=== PATIENT | male | born 1990 | race Caucasian/White ===

== ENCOUNTER 2019-11-15 12:28 | Inpatient (IN) | payer OTHER, SELFPAY ==
[2019-11-15] VITALS (12 sets, daily range): BP systolic 122–139; BP diastolic 67–94; PULSE 59–94; RESP 12–18; TEMP 36–36.8; O2SAT 95–100; BMI 25.8; BMI 25.0
--- NOTE | ~2019-11-15 | CT_ITS ---
EXAMINATION: CT abdomen pelvis w con DATE: 11/15/2019 15:11 INDICATION: Perforated cholecystitis TECHNIQUE: Computed tomography (CT) of the abdomen and pelvis was performed with 100 mL Omnipaque-350 intravenous contrast. Automated exposure control and iterative reconstruction technique were employe d. The dose-length product was 284.88 mGy-cm. COMPARISON: Ultrasound dated 11/15/2019 FINDINGS: Lung bases are clear. Visualized inferior heart is normal. No pericardial or pleural effusion. Spleen , pancreas, bilateral adrenal glands and kidneys are normal. The bowels including the appendix are no rmal. Partially decompressed bladder is normal. No free intraperitoneal gas or fluid. No pathological ly enlarged abdominal or pelvic lymphadenopathy. There are few scattered small sclerotic bone islands , the largest at the left femoral neck. There is diffuse wall thickening of the gallbladder with mild pericholecystic inflammatory stranding consistent with acute cholecystitis. Again seen is a small defect along the wall of the gallbladder w here it abuts the liver communicates with a 5.4 x 3.5 x 4.8 cm thick-walled cystic structure consiste nt with hepatic abscesses. No nodular soft tissue components to suggest malignancy. The remainder of the liver is normal. There is mild likely reactive periportal lymphadenopathy. The gallstone seen in the region of the neck of the gallbladder is not definitively identified on the CT images and is like ly noncalcified. No dilation of the common bile duct. IMPRESSION: 1. Likely perforated acute cholecystitis which appears to indicate with a 5.4 cm intrahepatic abscess . Reviewed, dictated and finalized at location A. ERCIAL PRODUCER IMPRESSION: 1. Likely perforated acute cholecystitis which appears to indicate with a 5.4 c m intrahepatic abscess.
--- NOTE | ~2019-11-15 | US_ITS ---
EXAMINATION: US right upper quadrant DATE: 11/15/2019 13:56 INDICATION: Right upper quadrant abdominal pain which worsens after eating TECHNIQUE: Multiple grayscale and Doppler ultrasound images of the abdomen were obtained. COMPARISON: None FINDINGS: The pancreatic head and body are normal in appearance. The pancreatic tail is not visualized. Visual ized proximal aorta and inferior vena cava are normal. Liver has normal echogenicity and contour, wit h a smooth surface. No intrahepatic biliary duct dilation suspected. Portal venous flow was seen in t he hepatopetal, normal direction and has normal Doppler waveform. Normal directional hepatofugal flow in the hepatic veins. There is diffuse wall thickening of the gallbladder measuring up to 3-4 mm. Th ere is an approximately 5 mm wide defect in the wall of the gallbladder which appears to indicate wit h a 3.8 x 4.6 x 3.6 cm anechoic fluid collection within the adjacent liver which is suspicious for pe rforation of the gallbladder and hepatic abscess. There is layering sludge within the gallbladder. Th ere is a 1.6 x 1.8 x 0.7 cm shadowing gallstone in the region of the neck of the gallbladder.. Sonogr aphic [place] sign was reported as positive by the fire control technician b.The common bile duct measures 5 mm in d iameter. Visualized portion of the right kidney demonstrates normal contour and echogenicity with no hydronephrosis. IMPRESSION: 1. Perforated acute cholecystitis with likely obstructing stone at the neck of the gallbladder and wi th communicating 4.6 cm hepatic abscess along the gallbladder fossa. Consider contrast-enhanced CT to more definitive assessment for any other hepatic disease. Reviewed, dictated and finalized at location A. OMS EXAMINER IMPRESSION: 1. Perforated acute cholecystitis with likely obstructing stone at the neck of the gallbladder and with communicating 4.6 cm hepatic abscess along the gallbla dder fossa. Consider contrast-enhanced CT to more definitive assessment for any other hepatic disease.
--- NOTE | 2019-11-15 12:41 | ED.ABDPAIN ---
HPI - Abdominal Pain General Chief Complaint: Abdominal Pain Stated Complaint: Abd pain Time Seen by Provider: 11/15/19 12:37 Source: patient and RN notes reviewed Mode of arrival: ambulatory Limitations: no limitations History of Present Illness HPI narrative: A 29 y/o male presents to the ED with constant, sharp, epigastric pain for the past week. He states that eating aggravates the pain and that when he does Fentanyl it alleviates the pain. He reports that the pain occasionally radiates into his LLQ. He denies any constipation, fevers, chills, back pain, N/V/D, or CP. MD elicited complaint: abdominal pain Pertinent past history: none Onset (ago): week(s) (1) Pain Consistency: constant Location: epigastric Quality: sharp Radiation: LLQ Exacerbating factors: eating Relieving factors: other (Fentanyl) Associated symptoms: denies other symptoms Related Data Home Medications Medication Instructions Recorded Confirmed buprenorphine-naloxone [Suboxone] film 11/15/19 Allergies Allergy/AdvReac Type Severity Reaction Status Date / Time No Known Allergies Allergy Verified 11/15/19 13:59 Review of Systems Review of Systems: All systems reviewed & are unremarkable except as noted in HPI and below Constitutional: Constitutional: Denies chills and Denies fever(s) Cardiovascular: Cardiovascular: Denies chest pain Gastrointestinal: Gastrointestinal: Reports abdominal pain (Epigastric that occasionally radiates into his LLQ), Denies constipation, Denies diarrhea, Denies nausea and Denies vomiting Musculoskeletal: Musculoskeletal: Denies back pain PMFSH Past Medical History Medical History Substance abuse 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 Currently on Suboxone treatment. Surgical History Surgical History No history of previous surgery Family History Family History Father Gallbladder disease Sibling Gallbladder disease Social History Social History Smoking packs per day: 0.5 Smoking cigarettes per day: 10.0 Years smoked: 20 Smoking pack-years: 10.00 Smoking status: Current every day smoker Tobacco type: cigarettes Alcohol intake: never Substance use: current Substance use type: opiates Other substance usage details: Currently relapsed to using fentanyl due to pain. Was on Suboxone treatment Living arrangements: with family Additional living arrangements comments: Lives with his father. Occupation/Education: occupation Additional occupation/education comments: [employer]. Gender identity (if verbalized by the patient): Male Exam Const: General: healthy appearing and no acute distress Nutritional Appearance: well nourished HENMT: Mouth: Yes lip normal, Yes moist mucous membranes and Yes other (poor dentition) Eyes: Conjunctivae: conjunctivae normal Pupils: Equal, round and reactive pupils present Resp: Effort & Inspection: normal respiratory effort Auscultation: clear to auscultation bilaterally Cardio: Rate: regular rate Rhythm: regular rhythm Heart sounds: no murmurs GI: GI Palp: Yes Soft to palpation, Yes Tenderness to palpation present (GI) (epigastric), No Guarding due to palpation present (GI) and No Rebound tenderness present Auscultation: normal bowel sounds Back/Spine/Pelvis: Other: Full ROM. Skin: General skin exam: normal color, dry skin and other (warm) Neuro: General: patient oriented x3 (alert) Speech: normal speech Extrem: General: full ROM and other (scattered scabs and scars on forearms LAKSHMI) Psych: Appearance: disheveled Course Consultations Consultation #1: Discussed case with Dr. Rojas (General Surgery). States that he will come down and take a look at the pts. Date: 11/15/19 Time: 15:23 Cons
[2019-11-15 12:52] LABS: Basophils Absolute Auto 0.1 K/mm3 (0.0-0.1); Basophils Percent Auto 0.4 % (0.2-1.2); Eosinophils Absolute Auto 0.2 K/mm3 (0-0.3); Eosinophils Percent Auto 1.4 % (0-4.4); Hematocrit 40.7 % (42.0-52.0); Hemoglobin 13.3 g/dL (14.0-18.0); Immature Granulocyte Absolute 0.05 K/mm3 (0.00-0.031); Immature Granulocyte Percent A 0.4 % (0-0.5); Lymphocytes Absolute Auto 1.85 K/mm3 (0.9-3.2); Lymphocytes Percent Auto 13.3 % (18.3-44.2); Mean Corpuscular HGB Conc 32.7 g/dl (32-36); Mean Corpuscular Hemoglobin 28.9 pg (26-34); Mean Corpuscular Volume 88.3 fl (80-100); Mean Platelet Volume 9.4 fl (7.4-10.4); Monocytes Absolute Auto 1.1 K/mm3 (0.1-0.6); Monocytes Percent Auto 7.9 % (2.6-8.5); Neutrophils Absolute Auto 10.6 K/mm3 (1.3-6.7); Neutrophils Percent Auto 76.6 % (45.5-73.1); Platelet Count Result 426 k/mm3 (150-375); Red Blood Count 4.61 M/mm3 (4.6-6.20); Red Cell Distribution Width 13.8 % (11.5-14.5); White Blood Count 13.9 K/mm3 (4.5-10.0)
[2019-11-15 13:00] LABS: Add Urine Microscopic? YES; Appearance Urine Clear (Clear); Bacteria Urine Trace /hpf; Bilirubin Urine Negative (Negative); Blood Urine Negative (Negative); Color Urine Yellow (Yellow); Glucose Urine UA Negative (Negative); Ketones Urine Negative (Negative); Leukocyte Esterase Ur Negative LEU/UL (Negative); Mucus Urine Rare /lpf; Nitrate Urine Negative (Negative); Protein Urine Negative (Negative); RBC Urine 0-2 /hpf (0-2); Specific Grav Ur 1.025 (1.001-1.035); WBC Urine 0-3 /hpf
[2019-11-15 13:02] LABS: Alanine Aminotransferase 29 U/L (4-50); Albumin Level 4.4 g/dL (3.5-5.1); Alkaline Phosphatase 94 U/L (38-126); Aspartate Amino Transferase 37 U/L (17-59); Bilirubin,Total 0.4 mg/dL (0.2-1.3); Blood Urea Nitrogen 18 mg/dL (9-20); Calcium 10.1 mg/dL (8.4-10.2); Carbon Dioxide 29 mmol/L (22-30); Chloride 101 mmol/L (98-107); Estimated CRCL calculation 114 ml/min; Estimated Glomerular Filt Rate > 60; Glucose 69 mg/dL (75-110); Lipase 22 U/L (23-300); Potassium 4.8 mmol/L (3.4-5.0); Sodium 138 mmol/L (137-145)
--- NOTE | 2019-11-15 13:54 | PC.NURSE ---
Patient back from ultrasound at this time.
[2019-11-15] MEDS: MORPHINE SULFATE 4 MG/ML INJ IV PUSH (15:59)
--- NOTE | 2019-11-15 16:16 | PM.IMHP ---
H&P: HPI History of Present Illness Chief complaint: Perforated cholecystitis Narrative: Omar Ocasio is a 29 year old male with a history of substance abuse currently on Suboxone treatment, who presented to the emergency department with complaints of right upper quadrant abdominal pain. He reports his pain initially started about 1 week ago. He reports that the pain felt like a stabbing pain in his right upper quadrant that continuously worsened over the next few days. He reports starting to inject fentanyl about 3 or 4 days ago to help suppress the pain. He states that he was previously addicted to fentanyl prior to starting the Suboxone treatment. He reports that once he started taking the fentanyl again, he stopped the Suboxone. The pain continued to worsen and was unrelenting, therefore he presented to the emergency department today for further evaluation. A right upper quadrant ultrasound was performed and showed perforated acute cholecystitis with a likely obstructing stone at the neck of the gallbladder and with a communicating 4.6 cm hepatic abscess along the gallbladder fossa. Then, a CT scan of the abdomen pelvis was performed and showed likely perforated acute cholecystitis which appears to communicate with a 5.4 cm intrahepatic abscess. There is mild likely reactive periportal lymphadenopathy. Labs revealed a white blood cell count of 13,900, otherwise fairly unremarkable labs. Our service was contacted for surgical evaluation of the perforated acute cholecystitis with an intrahepatic abscess. The patient is seen now in the emergency department. The patient reports his pain has improved some with the IV morphine he just received. He reports the pain is still in the right upper quadrant of his abdomen with no radiating symptoms. He reports movement makes this pain worse. Denies any additional nausea, vomiting, fevers, chills, or change in bowel movements. No other complaints at this time. No previous abdominal surgeries. Review of Systems Constitutional: Constitutional: Reports as per HPI, Denies chills, Denies excessive sweating, Denies fatigue, Denies fever(s), Denies headache(s) and Denies weakness Eyes: Eyes: Denies change in vision and Denies loss of vision ENT: Reports Normal hearing present, Denies dizziness and Denies headache(s) Cardiovascular: Cardiovascular: Denies chest pain, Denies syncope, Denies leg edema, Denies lightheadedness, Denies radiating jaw, neck or arm pain and Denies dyspnea Respiratory: Respiratory: Denies cough, Denies dyspnea and Denies wheezing Gastrointestinal: Gastrointestinal: Reports as per HPI, Reports no additional gastrointestinal complaints, Reports abdominal pain (Right upper quadrant), Denies bloating, Denies change in bowel habits, Denies constipation, Denies diarrhea, Denies nausea and Denies vomiting Musculoskeletal: Musculoskeletal: Denies deformity, Denies joint swelling, Denies radiating pain into limb and Denies tingling Integumentary/Breasts: Skin/Breast: Denies pruritus, Denies wounds and Denies jaundice Neurologic: Reports Normal hearing present, Denies confusion, Denies dizziness, Denies syncope, Denies headache(s), Denies loss of vision, Denies tingling, Denies tremor(s) and Denies weakness Psychiatric: Psychiatric: Denies anxiety and Denies depression Endocrine: Endocrine: Denies cold intolerance and Denies heat intolerance Hematologic/Lymphatic: Hematologic/Lymphatic: Denies easy bleeding and Denies easy bruising PMFSH Past Medical History Medical History Substance abuse 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 Currently on Suboxone treatment. Surgical History Surgical History No history of previous surgery Family History Family History Father Gallbladder disease Sibling Gallbladde
--- NOTE | 2019-11-15 18:53 | PM.PNGS ---
Progress Note: A&P Assessment and Plan (1) Cholecystitis with perforation of gallbladder: Code(s): K82.A2 - Perforation of gallbladder in cholecystitis Status: Acute Assessment and Plan: We will proceed with laparoscopic cholecystectomy that may possibly be converted to open cholecystectomy. The abscess will need to be drained. The procedure the risks the benefits were discussed with the patient and also with his father. All questions were answered. He will be admitted postoperatively for antibiotic and other postoperative care. He agrees to go ahead. (2) Abscess of liver: Code(s): K75.0 - Abscess of liver Status: Acute (3) Substance abuse: Code(s): F19.10 - Other psychoactive substance abuse, uncomplicated Status: Chronic Subjective Subjective Date/Time Seen: 11/15/19 18:53 Patient is a 33-year-old known narcotic addict who has been taking Suboxone. He started having right upper quadrant abdominal pain about a week ago. He was self medicating with fentanyl. He came to the emergency room today and was found to have tenderness in the right upper quadrant with leukocytosis. CT scan shows a large stone impacted in the neck of the gallbladder with gallbladder rupture and abscess. He is taken to surgery now for laparoscopic possibly open cholecystectomy. Exam GI: Inspection: normal to inspection and non-distended GI Palp: Yes Soft to palpation, Yes Tenderness to palpation present (GI) (Right upper quadrant) and Yes No hepatosplenomegaly present Objective Data Vital Signs Vital Signs: Vital Signs - 24 hr 11/15/19 12:30 11/15/19 13:56 11/15/19 14:50 Temperature 36.3 C L 36.5 C Pulse Rate 94 71 78 Respiratory Rate 16 18 17 Blood Pressure 132/94 H 127/79 122/76 Pulse Oximetry 100 100 100 11/15/19 15:52 11/15/19 16:51 11/15/19 17:59 Temperature 36.5 C 36.7 C 36.8 C Pulse Rate 91 91 72 Respiratory Rate 18 18 14 Blood Pressure 130/83 139/89 124/69 Pulse Oximetry 100 100 98 Intake/Output Intake/Output: Intake & Output 11/12/19 11/13/19 11/14/19 11/15/19 23:59 23:59 23:59 23:59 Intake Total 50 Balance 50 Meds/Results Medications: Active Medications Generic Name Dose Route Start Last Admin Trade Name Freq PRN Reason Stop Dose Admin Piperacillin/Tazobactam/Dextrose 3.375 gm in 50 mls @ 100 mls/hr 11/15/19 14:00 11/15/19 16:49 Zosyn 3.375 Gm/D5w 50ml Pm IVPB Not Given Q6H MARCO Lactated Ringer's 1,000 mls @ 150 mls/hr 11/15/19 15:55 Lr - Lactated Ringers Iv IV CONT .Q6H40M MARCO Morphine Sulfate 4 mg 11/15/19 15:53 Morphine Sulfate Inj IV PUSH Q2H PRN Pain Rated 7-10 Ondansetron HCl 4 mg 11/15/19 15:53 Zofran Inj IV PUSH Q4H PRN Nausea Radiology Results: ITS Impressions Upper Quadrant Ultrasound 11/15/19 14:06 IMPRESSION: 1. Perforated acute cholecystitis with likely obstructing stone at the neck of the gallbladder and with communicating 4.6 cm hepatic abscess along the gallbladder fossa. Consider contrast-enhanced CT to more definitive assessment for any other hepatic disease. Abdomen/Pelvis CT 11/15/19 15:22 IMPRESSION: 1. Likely perforated acute cholecystitis which appears to indicate with a 5.4 cm intrahepatic abscess. Labs Labs: Laboratory Results - last 24 hr 11/15/19 11/15/19 11/15/19 12:44 12:44 12:44 WBC 13.9 H RBC 4.61 Hgb 13.3 L Hct 40.7 L MCV 88.3 MCH 28.9 MCHC 32.7 RDW 13.8 Plt Count 426 H MPV 9.4 Immature Gran % (Auto) 0.4 Neut % (Auto) 76.6 H Lymph % (Auto) 13.3 L [place] % (Auto) 7.9 Eos % (Auto) 1.4 Baso % (Auto) 0.4 Lymph # (Auto) 1.85 [place] # (Auto) 1.1 H Eos # (Auto) 0.2 Baso # (Auto) 0.1 Abs Immat Gran (auto) 0.05 H Absolute Neuts (auto) 10.6 H Absolute Nucleated RBC 0.0 Nucleated RBC % 0.0 Sodium 138 Potassium 4.8 Chloride 101 Carbon Dioxide 29 BUN
--- NOTE | 2019-11-15 19:00 | WPDANESEPPF ---
Anes - Initial Pre Proc Eval Procedure: Operation Date: 11/15/19 17:30 Proposed Procedures p Laparoscopic Cholecystectomy, Possible Open - Gary Rojas MD Date/Time: 11/15/19 19:00 Surgeon: Gary Rojas MD Pre Op Diagnosis: Perforated cholecystitis Patient Data Age: 29 Gender: M Height: 5 ft 8 in Weight: 77 kg Last Vital Signs Temp 36.8 C 11/15/19 17:59 Pulse 72 11/15/19 17:59 Resp 14 11/15/19 17:59 BP 124/69 11/15/19 17:59 Pulse Ox 98 11/15/19 17:59 Allergies Allergy/AdvReac Type Severity Reaction Status Date / Time No Known Allergies Allergy Verified 11/15/19 17:43 Home Medications Medication Instructions Recorded Confirmed Type buprenorphine-naloxone [Suboxone] See Rx Instructions .ROUTE .COMPLEX 11/15/19 11/15/19 History Laboratory Tests 11/15/19 11/15/19 11/15/19 12:44 12:44 12:44 WBC 13.9 K/mm3 H K/mm3 (4.5-10.0) RBC 4.61 M/mm3 M/mm3 (4.6-6.20) Hgb 13.3 g/dL L g/dL (14.0-18.0) Hct 40.7 % L % (42.0-52.0) MCV 88.3 fl fl (80-100) MCH 28.9 pg pg (26-34) MCHC 32.7 g/dl g/dl (32-36) RDW 13.8 % % (11.5-14.5) Plt Count 426 k/mm3 H k/mm3 (150-375) MPV 9.4 fl fl (7.4-10.4) Immature Gran % (Auto) 0.4 % % (0-0.5) Neut % (Auto) 76.6 % H % (45.5-73.1) Lymph % (Auto) 13.3 % L % (18.3-44.2) [place] % (Auto) 7.9 % % (2.6-8.5) Eos % (Auto) 1.4 % % (0-4.4) Baso % (Auto) 0.4 % % (0.2-1.2) Lymph # (Auto) 1.85 K/mm3 K/mm3 (0.9-3.2) [place] # (Auto) 1.1 K/mm3 H K/mm3 (0.1-0.6) Eos # (Auto) 0.2 K/mm3 K/mm3 (0-0.3) Baso # (Auto) 0.1 K/mm3 K/mm3 (0.0-0.1) Abs Immat Gran (auto) 0.05 K/mm3 H K/mm3 (0.00-0.031) Absolute Neuts (auto) 10.6 K/mm3 H K/mm3 (1.3-6.7) Absolute Nucleated RBC 0.0 K/mm3 K/mm3 (0.0-0.012) Nucleated RBC % 0.0 % % (0.0-0.2) Sodium 138 mmol/L mmol/L (137-145) Potassium 4.8 mmol/L mmol/L (3.4-5.0) Chloride 101 mmol/L mmol/L (98-107) Carbon Dioxide 29 mmol/L mmol/L (22-30) BUN 18 mg/dL mg/dL (9-20) Creatinine 0.80 mg/dL mg/dL (0.7-1.3) Estim Creat Clear Calc 114 ml/min ml/min Estimated GFR > 60 (59 - ) Glucose 69 mg/dL L mg/dL (75-110) Calcium 10.1 mg/dL mg/dL (8.4-10.2) Total Bilirubin 0.4 mg/dL mg/dL (0.2-1.3) AST 37 U/L U/L (17-59) ALT 29 U/L U/L (4-50) Alkaline Phosphatase 94 U/L U/L (38-126) Total Protein 9.0 g/dL H g/dL (6.3-8.2) Albumin 4.4 g/dL g/dL (3.5-5.1) Lipase 22 U/L L U/L (23-300) Urine Color Yellow (Yellow) Urine Appearance Clear (Clear) Urine pH 6.0 (5.0-9.0) Ur Specific [place] 1.025 (1.001-1.035) Urine Protein Negative mg/dL mg/dL (Negative) Urine Glucose (UA) Negative mg/dL mg/dL (Negative) Urine Ketones Negative mg/dL mg/dL (Negative) Ur Blood (Man) Negative (Negative) Urine Nitrate Negative (Negative) Urine Bilirubin Negative (Negative) Urine Urobilinogen 2.0 mg/dL H mg/dL (<2.0) Leukocyte Esterase Rfl Negative NASEEM/UL NASEEM/UL (Negative) Urine RBC 0-2 /hpf /hpf (0-2) Urine WBC 0-3 /hpf /hpf Urine Bacteria Trace /hpf /hpf Urine Mucus Rare /lpf /lpf Patient hx anesthesia problems: none Family hx anesthesia problems: none PMFSH Past Medical History Medical History Substance abuse 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 Currently on Suboxone treatment. Surgical History Surgical History (Reviewed 11/15/19 @ 19:00 b
[2019-11-15] MEDS: BUPIVACAINE/EPINEPHRINE 0.5% 30 ML VIAL INFILTRATE (19:40)
[2019-11-15] MEDS: LACTATED RINGERS 1,000 ML 30 ML IV CONT ×2 (21:50)
--- NOTE | 2019-11-15 22:00 | PM.PROC ---
Procedure Note - Detailed Date of procedure: 11/15/19 Pre-op diagnosis: Perforated cholecystitis Acute cholecystitis with gallstones, gallbladder perforation, intrahepatic abscess Post-op diagnosis: same Procedure performed: Laparoscopic cholecystectomy, drainage of hepatic abscess Description of procedure: The patient was taken to surgery and induced into general anesthesia. The abdomen was prepped and draped. Trocars were placed in the usual fashion using 0.5% Marcaine with epinephrine applied Medical optical trocars. A 5 mm camera was placed. The gallbladder was obviously severely inflamed and was adherent to the liver. It was quite distended. I used a laparoscopic aspirator and decompressed the gallbladder. The gallbladder contents were clear, consistent with hydrops of the gallbladder. The gallbladder did decompress fairly nicely. However it was inflamed such that the wall was quite thickened and this made it more difficult to grasp. There were also multiple layers of necrotic tissue in the gallbladder wall that made it more difficult to grasp as well. The gallbladder was gently retracted anterosuperiorly. I used a combination of blunt and sharp dissection to free adhesions from the wall of the gallbladder. The duodenum was actually stuck to the gallbladder in its lower aspect. This was able to be freed without difficulty and no evidence of duodenal fistula was noted. The adhesions were densely attached to the gallbladder and on 1 occasion the liver tore at its surface rather than come free from the adhesion. Pressure was held on this until bleeding stopped. Sharp dissection was used to free the adhesion. We continued and then eventually were able to expose the infundibulum of the gallbladder. It was full with a large stone obviously impacted here and was the cause of the hydrops. This also made the gallbladder difficult to retract. I then carefully dissected in the cholecystohepatic triangle. The cystic duct and cystic artery were dissected out very carefully. Suction was used and cautery was used minimally. I also dissected the gallbladder off the liver at its lower 3rd. Critical view was achieved. I then securely clipped and divided the cystic duct and cystic artery. From there we began the very difficult dissection of the gallbladder from the liver. By this point in the surgery, there was already much more blood loss than is typically seen. I had to use an extra-large suction to accommodate the clots and blood. Once the major clots were removed, I irrigated and suctioned the area and removed the rest of the bloody drainage. I then went back to the gallbladder and began the dissection of the gallbladder from the liver. Initially this started out fairly well but once we were past the lower 3rd of the gallbladder, the gallbladder was adherent to the liver and I broke into the hepatic abscess draining it. Once it was drained, the gallbladder wall posteriorly was densely adherent to the liver. I dissected much of the gallbladder off the liver but initially left the back wall. I then used the gallbladder to retract the liver anteriorly. I started at the most posterior aspect of the back wall of the liver and began dissecting it from the liver. It was fused to the liver and there was no way of removing it without taking at least some liver tissue. I used the cautery and slowly removed the back wall of the gallbladder with some hepatic tissue leaving raw liver surface behind. Cautery was used when needed. I eventually freed the gallbladder completely from the liver. It was placed in an Endo-Catch bag and retrieved through the 10 11 epigastric trocar site. I had to significantly enlarge the opening at the epigastric trocar site to accommodate the gallbladder with its thickened wall and large stone. Eventually the gallbladder was removed. I closed the posterior rectus fascia over to the midline with running 0 0 Vicr
[2019-11-15] MEDS: HYDROMORPHONE HCL 1 MG/ML INJ 0.5 MG IV PUSH ×2 (22:15→22:29)
[2019-11-15] MEDS: LACTATED RINGERS 1,000 ML 125 ML IV CONT (23:27)
--- NOTE | 2019-11-15 23:47 | ADMGEN ---
This patient, Omar Ocasio, was admitted to [facility] Surg Room 314-01. Patient brought to room at 2245 from PACU. Patient/family oriented to hospital policies and general routines including ID bracelet, bed and alarms, visiting hours, pain management, procedures, bathroom and other care routines, personal items, smoking policy, room service/diet, and visiting hours. Valuables list has been completed. Information on how to activate the Rapid Response Team has been discussed. Patient/Family are encouraged to report perceived risks to care and to ask questions if they do not understand what they are told or what they should do.
[2019-11-16] MEDS: HYDROMORPHONE HCL 1 MG/ML INJ IV PUSH ×3 (01:02→22:53)
--- NOTE | 2019-11-16 02:11 | PC.NURSE ---
Patient got OOB at 0115, used restroom, and walked in [place] for short distance before returning to bed.
--- NOTE | 2019-11-16 02:20 | PC.NURSE ---
Dialysis terminated per Dialysis nurse, catheter disconnected using sterile field, patient resting comfortably with no complaints at this time.
[2019-11-16 02:40] VITALS: BP 136/73; PULSE 62; RESP 18; TEMP 36.3; O2SAT 100
[2019-11-16] MEDS: HYDROMORPHONE HCL 1 MG/ML INJ 2 MG IV PUSH ×3 (05:18→11:25)
[2019-11-16 06:00] VITALS: BP 132/95; PULSE 70; RESP 18; TEMP 36.9; O2SAT 99
[2019-11-16 06:04] LABS: Basophils Percent Auto 0.1 % (0.2-1.2); Hematocrit 37.3 % (42.0-52.0); Hemoglobin 12.3 g/dL (14.0-18.0); Immature Granulocyte Absolute 0.05 K/mm3 (0.00-0.031); Immature Granulocyte Percent A 0.3 % (0-0.5); Lymphocytes Absolute Auto 0.75 K/mm3 (0.9-3.2); Lymphocytes Percent Auto 5.1 % (18.3-44.2); Mean Corpuscular Hemoglobin 28.9 pg (26-34); Mean Corpuscular Volume 87.8 fl (80-100); Mean Platelet Volume 9.7 fl (7.4-10.4); Monocytes Percent Auto 6.5 % (2.6-8.5); Neutrophils Absolute Auto 13.1 K/mm3 (1.3-6.7); Platelet Count Result 394 k/mm3 (150-375); Red Blood Count 4.25 M/mm3 (4.6-6.20); Red Cell Distribution Width 13.8 % (11.5-14.5); White Blood Count 14.8 K/mm3 (4.5-10.0)
[2019-11-16 06:21] LABS: Alanine Aminotransferase 67 U/L (4-50); Albumin Level 3.8 g/dL (3.5-5.1); Alkaline Phosphatase 89 U/L (38-126); Aspartate Amino Transferase 103 U/L (17-59); Bilirubin,Total 0.3 mg/dL (0.2-1.3); Blood Urea Nitrogen 13 mg/dL (9-20); Carbon Dioxide 24 mmol/L (22-30); Chloride 96 mmol/L (98-107); Estimated CRCL calculation 129 ml/min; Estimated Glomerular Filt Rate > 60; Glucose 147 mg/dL (75-110); Potassium 4.5 mmol/L (3.4-5.0); Sodium 136 mmol/L (137-145)
--- NOTE | 2019-11-16 07:43 | WPDANESPN ---
Anes - Prog Note Post-Op Date/Time: 11/16/19 07:43 Cardiovascular status: normal Respiratory status: normal Airway patency: baseline Mental status: baseline Post-Op hydration status: normal Vital Signs: Last Vital Signs Temp 36.9 C 11/16/19 06:00 Pulse 70 11/16/19 06:00 Resp 18 11/16/19 06:00 BP 132/95 H 11/16/19 06:00 Pulse Ox 99 11/16/19 06:00 I/O: Intake & Output 11/15/19 11/15/19 11/16/19 15:59 23:59 07:59 Intake Total 50 1000 1897 Output Total 50 780 Balance 50 950 1117 Laboratory Tests 11/16/19 05:37 11/16/19 05:37 11/15/19 11/15/19 11/15/19 12:44 12:44 12:44 WBC 13.9 H RBC 4.61 Hgb 13.3 L Hct 40.7 L MCV 88.3 MCH 28.9 MCHC 32.7 RDW 13.8 Plt Count 426 H MPV 9.4 Immature Gran % (Auto) 0.4 Neut % (Auto) 76.6 H Lymph % (Auto) 13.3 L [place] % (Auto) 7.9 Eos % (Auto) 1.4 Baso % (Auto) 0.4 Lymph # (Auto) 1.85 [place] # (Auto) 1.1 H Eos # (Auto) 0.2 Baso # (Auto) 0.1 Abs Immat Gran (auto) 0.05 H Absolute Neuts (auto) 10.6 H Absolute Nucleated RBC 0.0 Nucleated RBC % 0.0 Sodium 138 Potassium 4.8 Chloride 101 Carbon Dioxide 29 BUN 18 Creatinine 0.80 Estim Creat Clear Calc 114 Estimated GFR > 60 Glucose 69 L Calcium 10.1 Total Bilirubin 0.4 AST 37 ALT 29 Alkaline Phosphatase 94 Total Protein 9.0 H Albumin 4.4 Lipase 22 L Urine Color Yellow Urine Appearance Clear Urine pH 6.0 Ur Specific [place] 1.025 Urine Protein Negative Urine Glucose (UA) Negative Urine Ketones Negative Ur Blood (Man) Negative Urine Nitrate Negative Urine Bilirubin Negative Urine Urobilinogen 2.0 H Leukocyte Esterase Rfl Negative Urine RBC 0-2 Urine WBC 0-3 Urine Bacteria Trace Urine Mucus Rare 11/16/19 11/16/19 05:37 05:37 WBC 14.8 H RBC 4.25 L Hgb 12.3 L Hct 37.3 L MCV 87.8 MCH 28.9 MCHC 33.0 RDW 13.8 Plt Count 394 H MPV 9.7 Immature Gran % (Auto) 0.3 Neut % (Auto) 88.0 H Lymph % (Auto) 5.1 L [place] % (Auto) 6.5 Eos % (Auto) 0.0 Baso % (Auto) 0.1 L Lymph # (Auto) 0.75 L [place] # (Auto) 1.0 H Eos # (Auto) 0.0 Baso # (Auto) 0.0 Abs Immat Gran (auto) 0.05 H Absolute Neuts (auto) 13.1 H Absolute Nucleated RBC 0.0 Nucleated RBC % 0.0 Sodium 136 L Potassium 4.5 Chloride 96 L Carbon Dioxide 24 BUN 13 D Creatinine 0.70 Estim Creat Clear Calc 129 Estimated GFR > 60 Glucose 147 H Calcium 9.0 Total Bilirubin 0.3 AST 103 H ALT 67 H Alkaline Phosphatase 89 Total Protein 8.0 Albumin 3.8 Lipase Urine Color Urine Appearance Urine pH Ur Specific [place] Urine Protein Urine Glucose (UA) Urine Ketones Ur Blood (Man) Urine Nitrate Urine Bilirubin Urine Urobilinogen Leukocyte Esterase Rfl Urine RBC Urine WBC Urine Bacteria Urine Mucus Post-procedural complaints: none Patient Feedback: Patient satisfied with anesthetic care.
[2019-11-16] MEDS: LACTATED RINGERS 1,000 ML 125 ML IV CONT ×2 (09:20→18:19)
--- NOTE | 2019-11-16 10:45 | PM.IMCN ---
Assessment and Plan Assessment and plan (1) Acute gangrenous cholecystitis: Code(s): K81.0 - Acute cholecystitis Status: Acute Assessment and Plan: Patient underwent Laparoscopic cholecystectomy, drainage of hepatic abscess on 11/15/[address] Rojas General Surgery. POD #1- Having increased pain, normal drainage from RLQ drain, surgical scars are well healing. Continue IV Zosyn antibiotics for infection, light IV fluid hydration, monitor leukocytosis and vital signs. General surgery is admitting and will be in charge of pain management, post-op issues and advancement of diet. -The patient sees Dr. Smith at [facility] who prescribes the patient Suboxone. I have called and talked to their staff and are awaiting their return call about his Suboxone dosing and recommendations of when to restart his medication. (2) Cholecystitis with perforation of gallbladder: Code(s): K82.A2 - Perforation of gallbladder in cholecystitis Status: Acute Assessment and Plan: See above (3) Hepatic abscess: Code(s): K75.0 - Abscess of liver Status: Acute Assessment and Plan: This was drained during his surgery on 09/17/2019. Continue IV antibiotics and surgery's recommendations are appreciated. (4) Substance abuse: Code(s): F19.10 - Other psychoactive substance abuse, uncomplicated Status: Chronic Assessment and Plan: Patient was recently using IV fentanyl prior to arrival for pain control. He was on Suboxone since March 2019 but recently stopped when using IV fentanyl. I am trying to call his doctor to see what they recommend for restarting Suboxone. The patient is in agreement at this time. (5) Asthma: Code(s): J45.909 - Unspecified asthma, uncomplicated Status: Acute Assessment and Plan: History of asthma and states he is out of his albuterol inhaler which she uses about once a week. Will order as needed albuterol inhaler and recommend following up with primary care provider for further evaluation as an outpatient. HPI Data of Consult Consult date: 11/16/19 Requesting Physician: Gary Rojas MD Primary Care Provider: OVEN OPERATOR PHYSICIAN Consult Narrative Narrative: Omar Ocasio is a 29 year old male with a history of substance abuse, who presented to the emergency department after 1 week of intermittent sharp right upper quadrant abdominal pain which occurred after eating a Bernice cheese steak. He denies any fever, chills, nausea or vomiting. Did continue to eat and drink as tolerated. He finally decided to come into the ER because he missed work on Friday. The patient is normally on Suboxone which is prescribed by Dr. Smith at [facility] and has been on the medication since March 2019. He reported stopping the medication 5 days ago since it was not controlling his pain and began using IV Fentanyl again for the last 5 days. He denies any rashes, redness to his skin from injection sites. He does have nonhealing scabs to his upper and lower extremities from when he used methamphetamines in the past, last used 1 month ago. He had a bowel movement yesterday, but it was small and he has a history of constipation issues. He denies any chest pain, shortness of breath, cough, leg swelling, calf pain, dysuria, frequent urination, headache, lightheadedness, dizziness, or any other symptoms at this time. Currently his pain is rated 9/10. Code: Full Code POA: Marek Posey PCP: None Review of Systems Review of Systems: All systems reviewed & are unremarkable except as noted in HPI and below PMFSH Past Medical History Medical History (Updated 11/16/19 @ 12:11 by Nasima Harris PA-C)
[2019-11-16] MEDS: ENOXAPARIN 40 MG/0.4 ML SYRINGE SUB-Q (11:17)
[2019-11-16] MEDS: FAMOTIDINE 20 MG/2 ML VIAL IV PUSH (11:17)
--- NOTE | 2019-11-16 11:38 | PM.PNGS ---
Progress Note: A&P Assessment and Plan (1) Cholecystitis with perforation of gallbladder: Code(s): K82.A2 - Perforation of gallbladder in cholecystitis Status: Acute Assessment and Plan: Doing well postop. No evidence of bile leak or purulent fluid. No evidence of bleeding. Continue IV antibiotics. Advance diet. (2) Abscess of liver: Code(s): K75.0 - Abscess of liver Status: Acute Assessment and Plan: Opened and drain in place. No further purulent fluid. (3) Substance abuse: Code(s): F19.10 - Other psychoactive substance abuse, uncomplicated Status: Chronic Assessment and Plan: Request for additional narcotics not surprising. Patient reassured that he is getting substantially more narcotics than is typical for this procedure. Also expressed concerns regarding respiratory depression if narcotics increased any further. Will try oral analgesics today with IV Dilaudid as backup. Hopefully pain complaints will reduce over the next couple of days. Subjective Subjective Date/Time Seen: 11/16/19 11:38 Post Op day: 1 Patient reports: still having pain (REQUESTING MORE PAIN MEDICATION) and afebrile Exam GI: Inspection: non-distended and incision (Healing well, KONSTANTIN drain serosanguineous) GI Palp: Yes Soft to palpation and Yes Tenderness to palpation present (GI) Auscultation: Hypoactive bowel sounds present Objective Data Vital Signs Vital Signs: Vital Signs - 24 hr 11/15/19 12:30 11/15/19 13:56 11/15/19 14:50 Temperature 36.3 C L 36.5 C Pulse Rate 94 71 78 Respiratory Rate 16 18 17 Blood Pressure 132/94 H 127/79 122/76 Pulse Oximetry 100 100 100 11/15/19 15:52 11/15/19 16:51 11/15/19 17:59 Temperature 36.5 C 36.7 C 36.8 C Pulse Rate 91 91 72 Respiratory Rate 18 18 14 Blood Pressure 130/83 139/89 124/69 Pulse Oximetry 100 100 98 11/15/19 21:50 11/15/19 22:05 11/15/19 22:20 Temperature 36.1 C L Pulse Rate 65 61 59 L Respiratory Rate 14 14 12 Blood Pressure 123/67 129/85 132/87 Pulse Oximetry 100 100 97 11/15/19 22:35 11/15/19 22:45 11/15/19 23:20 Temperature 36.0 C L Pulse Rate 62 78 62 Respiratory Rate 12 18 16 Blood Pressure 132/87 132/78 Pulse Oximetry 99 95 99 11/16/19 02:40 11/16/19 06:00 Temperature 36.3 C L 36.9 C Pulse Rate 62 70 Respiratory Rate 18 18 Blood Pressure 136/73 132/95 H Pulse Oximetry 100 99 Intake/Output Intake/Output: Intake & Output 11/13/19 11/14/19 11/15/19 11/16/19 23:59 23:59 23:59 23:59 Intake Total 1050 2300 Output Total 50 780 Balance 1000 1520 Meds/Results Medications: Active Medications Generic Name Dose Route Start Last Admin Trade Name Freq PRN Reason Stop Dose Admin Acetaminophen 500 mg 11/15/19 22:50 Tylenol Tablet PO Q6H PRN Mild Pain (1-3) or Fever Enoxaparin Sodium 40 mg 11/16/19 09:00 11/16/19 11:17 Lovenox SUB-Q 40 mg DAILY MARCO Administration Hydromorphone HCl 1 mg 11/15/19 22:50 11/16/19 03:14 Dilaudid Inj IV PUSH 1 mg Q2H PRN Administration Pain Rated 4-6 Hydromorphone HCl 2 mg 11/15/19 22:50 11/16/19 11:25 Dilaudid Inj IV PUSH 2 mg Q2H PRN Administration Pain Rated 7-10 Lactated Ringer's 1,000 mls @ 125 mls/hr 11/15/19 22:50 11/16/19 09:20 Lr - Lactated Ringers Iv IV CONT 125 mls/hr .Q8H MARCO Administration Piperacillin/Tazobactam/Dextrose 3.375 gm in 50 mls @ 100 mls/hr 11/15/19 23:00 11/16/19 06:00 Zosyn 3.375 Gm/D5w 50ml Pm IVPB Infused Q6HR MARCO Infusion Naloxone HCl 0.1 mg 11/15/19 22:50 Narcan IV PUSH Q2M PRN Opiate Reversal Ondansetron HCl 4 mg 11/15/19 15:53 Zofran Inj IV PUSH Q4H PRN Nausea Radiology Results: ITS Impressions Upper Quadrant Ultrasound 11/15/19 14:06 IMPRESSION: 1. Perforated acute cholecystitis with likely obstructing stone at the neck of the gallbladder and with communicating 4.6 cm hepatic abscess along
[2019-11-16 14:00] VITALS: BP 128/74; PULSE 83; RESP 18; TEMP 37.2; O2SAT 100
[2019-11-16] MEDS: HYDROMORPHONE HCL 2 MG/ML VIAL IV PUSH (15:50)
[2019-11-16 22:00] VITALS: BP 146/90; PULSE 79; RESP 18; TEMP 37.3; O2SAT 99
[2019-11-17] MEDS: ALPRAZOLAM 0.5 MG TABLET 1 MG PO (00:16)
[2019-11-17] MEDS: HYDROMORPHONE HCL 2 MG/ML VIAL IV PUSH ×4 (02:49→11:46)
[2019-11-17 06:00] VITALS: BP 163/94; PULSE 84; RESP 14; TEMP 37.6; O2SAT 100
[2019-11-17 06:11] LABS: Hematocrit 35.9 % (42.0-52.0); Hemoglobin 11.7 g/dL (14.0-18.0); Mean Corpuscular HGB Conc 32.6 g/dl (32-36); Mean Corpuscular Hemoglobin 28.6 pg (26-34); Mean Corpuscular Volume 87.8 fl (80-100); Mean Platelet Volume 9.8 fl (7.4-10.4); Platelet Count Result 422 k/mm3 (150-375); Red Blood Count 4.09 M/mm3 (4.6-6.20); Red Cell Distribution Width 13.9 % (11.5-14.5); White Blood Count 15.6 K/mm3 (4.5-10.0)
[2019-11-17 06:47] LABS: Blood Urea Nitrogen 6 mg/dL (9-20); Calcium 9.4 mg/dL (8.4-10.2); Carbon Dioxide 29 mmol/L (22-30); Chloride 101 mmol/L (98-107); Estimated CRCL calculation 129 ml/min; Estimated Glomerular Filt Rate > 60; Glucose 103 mg/dL (75-110); Sodium 137 mmol/L (137-145)
[2019-11-17] MEDS: LACTATED RINGERS 1,000 ML 85 ML IV CONT ×2 (08:20→18:12)
[2019-11-17] MEDS: ENOXAPARIN 40 MG/0.4 ML SYRINGE SUB-Q (08:20)
--- NOTE | 2019-11-17 13:22 | PM.PNGS ---
Progress Note: A&P Assessment and Plan (1) Cholecystitis with perforation of gallbladder: Code(s): K82.A2 - Perforation of gallbladder in cholecystitis Status: Acute Assessment and Plan: Continues to slowly improve postoperatively. Still no evidence of bile leak or purulence fluid. No signs of bleeding. Continue KONSTANTIN drain to bulb suction. WBC up slightly. Continue IV antibiotics. Work on pain control, which is difficult with his substance abuse history. Instructed the patient to walk in the halls today. Slowly advancing his diet. (2) Hepatic abscess: Code(s): K75.0 - Abscess of liver Status: Acute Assessment and Plan: Intra-operative drainage. See plan above. (3) Substance abuse: Code(s): F19.10 - Other psychoactive substance abuse, uncomplicated Status: Chronic Assessment and Plan: Difficulty with controlling the patient's pain is not surprising with the substance abuse history. Still receiving IV Dilaudid nearly every 2 hours while also receiving the [place]. Discussed with Dr. Rojas. Will continue the oral analgesics today and switch the IV dilaudid to IV Fentanyl for breakthrough pain only on an as needed basis. Hopefully, this will continue to improve over the next few days. Subjective Subjective Date/Time Seen: 11/17/19 13:22 Post Op day: 2 (Laparoscopic cholecystectomy with drainage of hepatic abscess) Patient reports: still having pain, no flatus and no bowel movement Interval history: Patient seen and examined. Main complaint is right lower quadrant pain where the KONSTANTIN drain is located. Has not walked the halls today. Continues to require IV Dilaudid for pain. Very little oral intake on full liquids, but tolerating this. Denies nausea, vomiting, or bloating. No flatus or BM today. No other complaints at this time. Review of Systems Review of Systems: All systems reviewed & are unremarkable except as noted in HPI and below Cardiovascular: Cardiovascular: Denies chest pain and Denies pedal edema Respiratory: Respiratory: Denies chest congestion, Denies cough and Denies dyspnea Exam Const: General: comfortable, no acute distress, alert and awake Orientation/consciousness: patient oriented x3 Resp: Effort & Inspection: normal respiratory effort Auscultation: clear to auscultation bilaterally Cardio: Rate: regular rate Rhythm: regular rhythm Heart sounds: S1 normal heart sound present and S2 normal heart sound present GI: Inspection: non-distended, incision (Abdominal incisions clean/dry/intact.) and other (KONSTANTIN drain to RLQ with serosanguineous drainage) GI Palp: Yes Soft to palpation, Yes Tenderness to palpation present (GI) (Diffusely tender near all incisions), No Guarding due to palpation present (GI) and No Rebound tenderness present Auscultation: normal bowel sounds Neuro: General: patient oriented x3 and moves all extremities Cranial nerves: Yes CN's II-XII intact bilaterally Speech: normal speech Extrem: General: no calf tenderness and no edema Psych: Mental Status: mental status grossly normal Attitude: cooperative Thought process: Normal thought process present Thought content: Yes Normal thought content present Objective Data Vital Signs Vital Signs: Vital Signs - 24 hr 11/16/19 14:00 11/16/19 22:00 11/17/19 06:00 Temperature 37.2 C 37.3 C 37.6 C H Pulse Rate 83 79 84 Respiratory Rate 18 18 14 Blood Pressure 128/74 146/90 H 163/94 H Pulse Oximetry 100 99 100 Intake/Output Intake/Output: Intake & Output 11/14/19 11/15/19 11/16/19 11/17/19 23:59 23:59 23:59 23:59 Intake Total 1050 4960 2090 Output Total 50 1830 Balance 1000 3130 2090 Meds/Results Medications: Active Medications Generic Name Dose Route Start Last Admin Trade Name Freq PRN Reason Stop Dose Admin Acetaminophen 500 mg 11/15/19 22:50 Tylenol Tablet PO Q6H PRN Mild Pain (1-3) or Fever Hydrocodone Bitart/Acetaminophen 1 tab
--- NOTE | 2019-11-17 13:25 | PM.IMPN ---
Progress Note: A&P Assessment and Plan (1) Acute gangrenous cholecystitis: Code(s): K81.0 - Acute cholecystitis Status: Acute Assessment and Plan: Patient underwent Laparoscopic cholecystectomy, drainage of hepatic abscess on 11/15/[address] Rojas General Surgery. POD #2-still having increased pain, normal drainage from RLQ drain, surgical scars are well healing. Patient's white blood cell count increased to 15.6K today. His vitals have been stable, afebrile, non tachycardic, normal respirations and oxygenation. I did order blood cultures to be drawn since this was not completed prior to patient's arrival and administration of IV antibiotics. And the patient does have a history of bacteremia in the past because of his IV drug use and he had been using IV fentanyl for few days prior to coming in. Continue IV Zosyn antibiotics for infection, light IV fluid hydration, monitor leukocytosis and vital signs. General surgery is admitting and will be in charge of pain management, post-op issues and advancement of diet. -The patient sees Dr. Smith at [facility] who prescribes the patient Suboxone. I have called and talked to their staff multiple times and are awaiting their return call about his Suboxone dosing and recommendations of when to restart his medication. (2) Cholecystitis with perforation of gallbladder: Code(s): K82.A2 - Perforation of gallbladder in cholecystitis Status: Acute Assessment and Plan: See above (3) Hepatic abscess: Code(s): K75.0 - Abscess of liver Status: Acute Assessment and Plan: This was drained during his surgery on 09/17/2019. Continue IV antibiotics and surgery's recommendations are appreciated. (4) Substance abuse: Code(s): F19.10 - Other psychoactive substance abuse, uncomplicated Status: Chronic Assessment and Plan: Patient was recently using IV fentanyl prior to arrival for pain control. He was on Suboxone since March 2019 but recently stopped when using IV fentanyl. I am trying to call his doctor to see what they recommend for restarting Suboxone. The patient is in agreement at this time. (5) Asthma: Code(s): J45.909 - Unspecified asthma, uncomplicated Status: Acute Assessment and Plan: History of asthma and states he is out of his albuterol inhaler which she uses about once a week. Will order as needed albuterol inhaler and recommend following up with primary care provider for further evaluation as an outpatient. Time Spent With Patient Time with patient: 25 - 35 minutes Subjective Date/time seen: 11/17/19 13:25 Interval history: Date of Service 11/17/2019: The patient is still having increased abdominal pain today even despite IV narcotics. He has been drinking water and has been eating a full liquid diet without any issues today. He does report having decreased appetite secondary to pain. Denies any nausea, vomiting, fever, chills, chest pain, shortness of breath, palpitations, leg swelling, calf pain, headache, lightheadedness, dizziness or any other symptoms at this time. Review of Systems Review of Systems: All systems reviewed & are unremarkable except as noted in HPI and below Exam Narrative: Exam Narrative: General: 29-year-old man sitting up in bed watching TV. Appears comfortable. In no acute distress. ENT: Poor dentition. Oral pharynx moist. Skin: Multiple 1x1cm scabs noted to bilateral upper and lower extremities, no surrounding erythema, edema, warmth or drainage noted. Multiple scars to upper extremities from injection sites with no erythema, edema or warmth noted. No jaundice or cyanosis. Good skin turgor. Neck: Full range of motion.
[2019-11-17 14:00] VITALS: BP 136/85; PULSE 88; RESP 18; TEMP 37; O2SAT 98
[2019-11-17 22:00] VITALS: BP 129/86; PULSE 85; RESP 20; TEMP 36.7; O2SAT 97
[2019-11-18 06:08] VITALS: BP 124/88; PULSE 77; RESP 20; TEMP 36.8; O2SAT 99
[2019-11-18 06:27] LABS: Basophils Percent Auto 0.2 % (0.2-1.2); Eosinophils Absolute Auto 0.1 K/mm3 (0-0.3); Eosinophils Percent Auto 0.6 % (0-4.4); Hematocrit 36.6 % (42.0-52.0); Hemoglobin 12.1 g/dL (14.0-18.0); Immature Granulocyte Absolute 0.04 K/mm3 (0.00-0.031); Immature Granulocyte Percent A 0.3 % (0-0.5); Lymphocytes Absolute Auto 1.72 K/mm3 (0.9-3.2); Lymphocytes Percent Auto 12.4 % (18.3-44.2); Mean Corpuscular HGB Conc 33.1 g/dl (32-36); Mean Corpuscular Hemoglobin 28.8 pg (26-34); Mean Corpuscular Volume 87.1 fl (80-100); Mean Platelet Volume 9.1 fl (7.4-10.4); Monocytes Absolute Auto 1.5 K/mm3 (0.1-0.6); Monocytes Percent Auto 10.7 % (2.6-8.5); Neutrophils Absolute Auto 10.5 K/mm3 (1.3-6.7); Neutrophils Percent Auto 75.8 % (45.5-73.1); Platelet Count Result 434 k/mm3 (150-375); Red Cell Distribution Width 13.5 % (11.5-14.5); White Blood Count 13.9 K/mm3 (4.5-10.0)
[2019-11-18 06:40] LABS: Alanine Aminotransferase 61 U/L (4-50); Albumin Level 3.8 g/dL (3.5-5.1); Alkaline Phosphatase 84 U/L (38-126); Aspartate Amino Transferase 41 U/L (17-59); Bilirubin,Total 0.6 mg/dL (0.2-1.3); Blood Urea Nitrogen 6 mg/dL (9-20); Calcium 9.8 mg/dL (8.4-10.2); Carbon Dioxide 26 mmol/L (22-30); Chloride 104 mmol/L (98-107); Estimated CRCL calculation 129 ml/min; Estimated Glomerular Filt Rate > 60; Glucose 97 mg/dL (75-110); Potassium 4.2 mmol/L (3.4-5.0); Sodium 139 mmol/L (137-145)
--- NOTE | 2019-11-18 08:10 | PM.PNGS ---
Progress Note: A&P Assessment and Plan (1) Cholecystitis with perforation of gallbladder: Code(s): K82.A2 - Perforation of gallbladder in cholecystitis Status: Acute Assessment and Plan: DC KONSTANTIN drain today. Reduce fentanyl dose and try to convert to oral analgesics. Continue IV antibiotics. Advance diet and ambulate. (2) Hepatic abscess: Code(s): K75.0 - Abscess of liver Status: Acute Assessment and Plan: Has been well drained surgically and with KONSTANTIN drain. No evidence of purulent fluid the entire postop period. KONSTANTIN drain to be removed today. (3) Substance abuse: Code(s): F19.10 - Other psychoactive substance abuse, uncomplicated Status: Chronic Assessment and Plan: Reduce fentanyl dose and try to get patient on oral analgesics. He is also constipated and I will give him do collects tabs, fleets enema and start MiraLax with Senokot. Subjective Subjective Date/Time Seen: 11/18/19 08:10 Post Op day: 3 Patient reports: no new complaints, still having pain, tolerating liquids well and no bowel movement Exam GI: Inspection: non-distended and incision ( All healing well. KONSTANTIN drain has serosanguineous fluid.) GI Palp: Yes Soft to palpation and Yes Tenderness to palpation present (GI) Auscultation: Hypoactive bowel sounds present Objective Data Vital Signs Vital Signs: Vital Signs - 24 hr 11/17/19 14:00 11/17/19 22:00 11/18/19 06:08 Temperature 37.0 C 36.7 C 36.8 C Pulse Rate 88 85 77 Respiratory Rate 18 20 20 Blood Pressure 136/85 129/86 124/88 Pulse Oximetry 98 97 99 Intake/Output Intake/Output: Intake & Output 11/15/19 11/16/19 11/17/19 11/18/19 23:59 23:59 23:59 23:59 Intake Total 1050 4960 4690 1173 Output Total 50 1830 1500 1695 Balance 1000 5860 9111 -332 Meds/Results Medications: Active Medications Generic Name Dose Route Start Last Admin Trade Name Freq PRN Reason Stop Dose Admin Acetaminophen 500 mg 11/15/19 22:50 Tylenol Tablet PO Q6H PRN Mild Pain (1-3) or Fever Hydrocodone Bitart/Acetaminophen 1 tab 11/18/19 08:06 [place] 10-325 Mg PO Q6H PRN Pain Rated 4-6 Hydrocodone Bitart/Acetaminophen 2 tab 11/18/19 08:06 [place] 7.5-325 Mg PO Q6H PRN Pain Rated 7-10 Albuterol 2 puff 11/16/19 12:25 Proventil Hfa INHALATION QIDRT PRN Shortness Of Breath Alprazolam 1 mg 11/16/19 11:33 11/17/19 00:16 Xanax PO 1 mg HS PRN Administration Sleep Enoxaparin Sodium 40 mg 11/16/19 09:00 11/17/19 08:20 Lovenox SUB-Q 40 mg DAILY MARCO Administration Piperacillin/Tazobactam/Dextrose 3.375 gm in 50 mls @ 100 mls/hr 11/15/19 23:00 11/18/19 06:52 Zosyn 3.375 Gm/D5w 50ml Pm IVPB Infused Q6HR MARCO Infusion Naloxone HCl 0.1 mg 11/15/19 22:50 Narcan IV PUSH Q2M PRN Opiate Reversal Ondansetron HCl 4 mg 11/15/19 15:53 Zofran Inj IV PUSH Q4H PRN Nausea Radiology Results: ITS Impressions Upper Quadrant Ultrasound 11/15/19 14:06 IMPRESSION: 1. Perforated acute cholecystitis with likely obstructing stone at the neck of the gallbladder and with communicating 4.6 cm hepatic abscess along the gallbladder fossa. Consider contrast-enhanced CT to more definitive assessment for any other hepatic disease. Abdomen/Pelvis CT 11/15/19 15:22 IMPRESSION: 1. Likely perforated acute cholecystitis which appears to indicate with a 5.4 cm intrahepatic abscess. Labs Labs: Laboratory Results - last 24 hr 11/18/19 11/18/19 06:16 06:16 WBC 13.9 H RBC 4.20 L Hgb 12.1 L Hct 36.6 L MCV 87.1 MCH 28.8 MCHC 33.1 RDW 13.5 Plt Count 434 H MPV 9.1 Immature Gran % (Auto) 0.3 Neut % (Auto) 75.8 H Lymph % (Auto) 12.4 L [place] % (Auto) 10.7 H Eos % (Auto) 0.6 Baso % (Auto) 0.2 Lymph # (Auto) 1.72 [place] # (Auto) 1.5 H Eos # (Auto) 0.1 Baso # (Auto) 0.0 Abs Immat Gran (auto) 0.0
[2019-11-18] MEDS: BISACODYL 5 MG TABLET EC 10 MG PO (09:47)
[2019-11-18] MEDS: polyethylene glycoL 3350 17 GM POWD.PACK PO (09:48)
[2019-11-18] MEDS: ENOXAPARIN 40 MG/0.4 ML SYRINGE SUB-Q (10:19)
--- NOTE | 2019-11-18 10:22 | PC.NURSE ---
Upon entering patients room, the smell of marijuana was noted. No smoke was present in the room. Patient denied any that he had been smoking. Patient was educated on the hospital's no-smoking policy as well as the dangers of smoking around oxygen.
--- NOTE | 2019-11-18 11:56 | PM.IMPN ---
Progress Note: A&P Assessment and Plan (1) Acute gangrenous cholecystitis: Code(s): K81.0 - Acute cholecystitis Status: Acute Assessment and Plan: Patient underwent Laparoscopic cholecystectomy, drainage of hepatic abscess on 11/15/[address] Rojas General Surgery. POD #3-still having increased pain, improved drainage from RLQ drain, surgical scars are well healing. Patient's white blood cell count improved to 13.9 K today. His vitals have been stable, afebrile, non tachycardic, normal respirations and oxygenation. I did order blood cultures to be drawn since this was not completed prior to patient's arrival and administration of IV antibiotics. And the patient does have a history of bacteremia in the past because of his IV drug use and he had been using IV fentanyl for few days prior to coming in. Surgery evaluated the patient today and they are going to be decreasing his narcotics to oral, advancing his diet and continuing IV antibiotics at this time. Continue IV Zosyn antibiotics for infection, monitor leukocytosis and vital signs. General surgery is admitting and will be in charge of pain management, post-op issues and advancement of diet. -The patient sees Dr. Smith at [facility] who prescribes the patient Suboxone. I talked to Dr. Smith last night who states that the patient should be on narcotics at this time due to the extent of his pain and surgery he has gone through. He recommends the patient being discharged on narcotics and once he is fully healed from his surgery he can return back to his office and be restarted on his Suboxone. (2) Cholecystitis with perforation of gallbladder: Code(s): K82.A2 - Perforation of gallbladder in cholecystitis Status: Acute Assessment and Plan: See above (3) Hepatic abscess: Code(s): K75.0 - Abscess of liver Status: Acute Assessment and Plan: This was drained during his surgery on 09/17/2019. Continue IV antibiotics and surgery's recommendations are appreciated. (4) Substance abuse: Code(s): F19.10 - Other psychoactive substance abuse, uncomplicated Status: Chronic Assessment and Plan: Patient was recently using IV fentanyl prior to arrival for pain control. He was on Suboxone since March 2019 but recently stopped when using IV fentanyl. The patient will be placed on narcotics at discharge at the request of Dr. Smith due to the extent of his surgery and symptoms. Once discharged and fully healed from his surgery he can return back to Dr. Smith's office and be restarted back on his Suboxone. The patient is in agreement at this time. (5) Asthma: Code(s): J45.909 - Unspecified asthma, uncomplicated Status: Acute Assessment and Plan: History of asthma and states he is out of his albuterol inhaler which she uses about once a week. Will order as needed albuterol inhaler and recommend following up with primary care provider for further evaluation as an outpatient. Time Spent With Patient Time with patient: 25 - 35 minutes Subjective Date/time seen: 11/18/19 11:56 Interval history: Date of Service 11/18/2019: The patient is still having increased abdominal pain today even despite IV narcotics. He currently rates pain 10/10 at this time. He has been drinking water but denies eating any real food due to lack of appetite. He reports being constipated since his surgery but he feels like he has a lot of ?gas buildup today . Denies any nausea, vomiting, fever, chills, chest pain, shortness of breath, palpitations, leg swelling, calf pain, headache, lightheadedness, dizziness or any other symptoms at this time. Review of Systems Review of Systems: All systems re
[2019-11-18 15:20] VITALS: BP 129/79; PULSE 94; RESP 16; TEMP 36.8; O2SAT 98
[2019-11-18] MEDS: ALPRAZOLAM 0.5 MG TABLET 1 MG PO ×2 (15:29→23:21)
[2019-11-18] MEDS: SENNA/DOCUSATE SODIUM TABLET 2 TAB PO (21:20)
[2019-11-18 22:00] VITALS: BP 116/71; PULSE 96; RESP 16; TEMP 36.7; O2SAT 99
[2019-11-19 06:00] VITALS: BP 113/62; PULSE 90; RESP 18; TEMP 36.3; O2SAT 100
[2019-11-19 06:25] LABS: Hematocrit 34.1 % (42.0-52.0); Hemoglobin 11.4 g/dL (14.0-18.0); Mean Corpuscular HGB Conc 33.4 g/dl (32-36); Mean Corpuscular Volume 86.8 fl (80-100); Mean Platelet Volume 9.3 fl (7.4-10.4); Platelet Count Result 469 k/mm3 (150-375); Red Blood Count 3.93 M/mm3 (4.6-6.20); Red Cell Distribution Width 13.2 % (11.5-14.5); White Blood Count 11.5 K/mm3 (4.5-10.0)
[2019-11-19 06:38] LABS: Blood Urea Nitrogen 8 mg/dL (9-20); Calcium 9.7 mg/dL (8.4-10.2); Carbon Dioxide 27 mmol/L (22-30); Chloride 101 mmol/L (98-107); Estimated CRCL calculation 148 ml/min; Estimated Glomerular Filt Rate > 60; Glucose 96 mg/dL (75-110); Potassium 3.9 mmol/L (3.4-5.0); Sodium 137 mmol/L (137-145)
--- NOTE | 2019-11-19 07:09 | PM.DS ---
DS: Diagnosis Admitting Diagnosis Admitting Diagnosis: Calculus of gallbladder with acute cholecystitis without obstruction Discharge Diagnosis (1) Cholecystitis with perforation of gallbladder: Code(s): K82.A2 - Perforation of gallbladder in cholecystitis Status: Acute (2) Hepatic abscess: Code(s): K75.0 - Abscess of liver Status: Acute (3) Substance abuse: Code(s): F19.10 - Other psychoactive substance abuse, uncomplicated Status: Chronic (4) Asthma: Code(s): J45.909 - Unspecified asthma, uncomplicated Status: Chronic DS: Summary Time Spent with Patient Time attestation: Total time spent providing and/or coordinating discharge services: Patient is a 29-year-old man who presented to the emergency room on November 15, 2019. He has a history of substance abuse and was taking Suboxone. His pain started about a week ago. He thought this may be due to a reaction from the Suboxone so he stopped taking it. Then about 3 or 4 days before admission he began taking fentanyl rather than the Suboxone. Eventually realized that masking the pain with fentanyl was not productive. He came to the emergency room where he was noted to have right upper quadrant tenderness and an elevated white count of nearly 14,000. CT scan showed acute cholecystitis with gallstones and gallbladder perforation with hepatic abscess. Dr. Rojas took the patient to the operating room from the emergency room. He was given preoperative antibiotics. He had laparoscopic cholecystectomy. Not surprisingly, the cholecystectomy was difficult. There was not and padded abscess which was drained the gallbladder was able to be removed but there was raw liver surface which caused increased bleeding. This was controlled with cautery and hemostatic agents. Postoperatively he was continued on IV Zosyn. Hospitalist service saw him in consultation for assistance with his narcotic addiction. His pain was, of course, difficult to control. Initially he was on Dilaudid and then this was switched to fentanyl. On postop day 3. His fentanyl dose was reduced and he was given increased doses of oral narcotic analgesics. He was given laxatives and had a bowel movement. On the day of discharge is white blood cell count had finally decreased to 11,500. he had a bowel movement on the day of discharge and was feeling better. His KONSTANTIN drain was removed on postop day 3. He is discharged now on postop day 4. On regular diet with oral antibiotics. Pathology report showed acute cholecystitis with cholelithiasis and acute abscess in the adjacent liver tissue. Blood cultures done on November 16 are at this time negative. Exam GI: Inspection: non-distended and incision ( Healing well. Bandage over KONSTANTIN drain site is dry and intact) GI Palp: Yes Soft to palpation and Yes Tenderness to palpation present (GI) Auscultation: normoactive bowel sounds DS: Data Data Completed and Pending Completed studies during hospitalization: Pending at discharge 11/15/19 19:42 Surgical [PTH] Routine Labs on day of discharge: Labs from last 24 hours 11/19/19 11/19/19 05:48 05:48 WBC 11.5 H RBC 3.93 L Hgb 11.4 L Hct 34.1 L MCV 86.8 MCH 29.0 MCHC 33.4 RDW 13.2 Plt Count 469 H MPV 9.3 Sodium 137 Potassium 3.9 Chloride 101 Carbon Dioxide 27 BUN 8 L Creatinine 0.60 L Estim Creat Clear Calc 148 Estimated GFR > 60 Glucose 96 Calcium 9.7 Preliminary micro results at discharge 11/17/19 16:31 Blood Culture - Preliminary Blood 11/17/19 16:38 Blood Culture - Preliminary Blood Discharge Plan Discharge Attending physician on discharge: Gary Rojas Consulting providers: Chon Blanca ; Humberto Dennis Discharging Clinician: Gary Rojas Anticipated Discharge Date/Time: 11/19/19 07:19 Patient Disposition: Home, Self-Care Activity: may shower, no straining and as tolerated
[2019-11-19 08:00] VITALS: PULSE 90; RESP 18; O2SAT 100
[2019-11-19] MEDS: ENOXAPARIN 40 MG/0.4 ML SYRINGE SUB-Q (09:45)
[2019-11-19] MEDS: polyethylene glycoL 3350 17 GM POWD.PACK PO (09:45)
--- NOTE | 2019-11-19 11:55 | PM.IMPN ---
Subjective Date/time seen: 11/19/19 11:55 Patient discharged prior to being seen today Objective Data Vital Signs Vital Signs: Vital Signs - 24 hr 11/18/19 15:20 11/18/19 22:00 11/19/19 06:00 Temperature 98.3 F 98.1 F 97.3 F L Pulse Rate 94 96 90 Respiratory Rate 16 16 18 Blood Pressure 129/79 116/71 113/62 Pulse Oximetry 98 99 100 11/19/19 08:00 Temperature Pulse Rate 90 Respiratory Rate 18 Blood Pressure Pulse Oximetry 100 Intake/Output Intake/Output: Intake & Output 11/16/19 11/17/19 11/18/19 11/19/19 23:59 23:59 23:59 23:59 Intake Total 4960 4690 3693 1140 Output Total 1830 1500 1695 1300 Balance 3130 3190 1998 -160 Meds/Results Radiology Results: ITS Impressions Upper Quadrant Ultrasound 11/15/19 14:06 IMPRESSION: 1. Perforated acute cholecystitis with likely obstructing stone at the neck of the gallbladder and with communicating 4.6 cm hepatic abscess along the gallbladder fossa. Consider contrast-enhanced CT to more definitive assessment for any other hepatic disease. Abdomen/Pelvis CT 11/15/19 15:22 IMPRESSION: 1. Likely perforated acute cholecystitis which appears to indicate with a 5.4 cm intrahepatic abscess. Labs Labs: Laboratory Results - last 24 hr 11/19/19 11/19/19 05:48 05:48 WBC 11.5 H RBC 3.93 L Hgb 11.4 L Hct 34.1 L MCV 86.8 MCH 29.0 MCHC 33.4 RDW 13.2 Plt Count 469 H MPV 9.3 Sodium 137 Potassium 3.9 Chloride 101 Carbon Dioxide 27 BUN 8 L Creatinine 0.60 L Estim Creat Clear Calc 148 Estimated GFR > 60 Glucose 96 Calcium 9.7 Quality VTE Prophylaxis VTE prophylaxis: mechanical ordered
== END 2019-11-19 10:00 | disposition home or self-care (01) | DRG 263 ==
LOC: ANHED 15:37 → ANH3MEDSUR 16:35
PROVIDERS: Emergency Medicine; Physician Assistant; Admitting Provider Surgery; Emergency Provider Emergency Medicine; Visit Provider Surgery
PROC: 0FT44ZZ Resection of Gallbladder, Percutaneous Endoscopic Approach (ICD-10-PCS; CPT 47562; principal; 2019-11-15 17:30)
DX: K80.00 Calculus of gallbladder with acute cholecystitis without obstruction (principal); K82.A2 Perforation of gallbladder in cholecystitis; F11.20 Opioid dependence, uncomplicated; F17.210 Nicotine dependence, cigarettes, uncomplicated; K75.0 Abscess of liver; K91.61 Intraoperative hemorrhage and hematoma of a digestive system organ or structure complicating a digestive system procedure; J45.909 Unspecified asthma, uncomplicated
CPT/HCPCS: 36415; 74177; 76705; 80048; 80053; 81001; 83690; 85025; 85027; 87040; 88304; 96361; 96365; 96375; 99285; A9270; C1713; J0330; J1100; J1170; J1650; J2250; J2270; J2405; J2543; J2704; J2710; J3010; J7120; Q9967

== ENCOUNTER 2019-12-17 14:09 | Outpatient (CLI) | payer OTHER, SELFPAY ==
[2019-12-17 14:48] LABS: Basophils Absolute Auto 0.1 K/mm3 (0.0-0.1); Basophils Percent Auto 0.4 % (0.2-1.2); Eosinophils Absolute Auto 0.2 K/mm3 (0-0.3); Eosinophils Percent Auto 1.5 % (0-4.4); Hematocrit 37.2 % (42.0-52.0); Immature Granulocyte Absolute 0.02 K/mm3 (0.00-0.031); Immature Granulocyte Percent A 0.2 % (0-0.5); Lymphocytes Absolute Auto 2.41 K/mm3 (0.9-3.2); Lymphocytes Percent Auto 21.2 % (18.3-44.2); Mean Corpuscular HGB Conc 32.3 g/dl (32-36); Mean Corpuscular Hemoglobin 28.6 pg (26-34); Mean Corpuscular Volume 88.6 fl (80-100); Mean Platelet Volume 10.1 fl (7.4-10.4); Monocytes Absolute Auto 0.7 K/mm3 (0.1-0.6); Monocytes Percent Auto 6.4 % (2.6-8.5); Neutrophils Percent Auto 70.3 % (45.5-73.1); Platelet Count Result 307 k/mm3 (150-375); Red Cell Distribution Width 13.4 % (11.5-14.5); White Blood Count 11.4 K/mm3 (4.5-10.0)
[2019-12-17 15:08] LABS: Alanine Aminotransferase 12 U/L (4-50); Alkaline Phosphatase 78 U/L (38-126); Aspartate Amino Transferase 24 U/L (17-59); Bilirubin,Total 0.3 mg/dL (0.2-1.3)
== END 2019-12-17 14:10 | disposition home or self-care (01) ==
PROVIDERS: Visit Provider Nurse Practitioner Family
DX: F33.1 Major depressive disorder, recurrent, moderate (principal); K82.A2 Perforation of gallbladder in cholecystitis; Z51.12 Encounter for antineoplastic immunotherapy; R93.1 Abnormal findings on diagnostic imaging of heart and coronary circulation; Z79.899 Other long term (current) drug therapy
CPT/HCPCS: 36415; 80076; 85025

== ENCOUNTER 2019-12-21 11:01 | Outpatient (CLI) | payer OTHER, SELFPAY ==
--- NOTE | ~2019-12-21 | US_ITS ---
EXAMINATION: US right upper quadrant EXAM DATE: 12/21/2019 11:36 INDICATION: Elevated white blood cell count, right upper quadrant pain. TECHNIQUE: Multiple grayscale and Doppler images of the abdomen right upper quadrant were obtained (b y a technologist who performed the scan) and subsequently reviewed. Comparison is made to prior exami nation from 11/15/2019. FINDINGS: The pancreatic head and body are normal in appearance. The pancreatic tail is not visualized. The l iver has normal echogenicity and contour. There are no focal liver lesions identified. There is no evidence of intrahepatic biliary duct dilation. Portal venous flow was seen in the hepatopedal, nor mal direction and has normal Doppler waveform. No right-sided hydronephrosis. Common bile duct measures 3 mm, which is normal. Small complex fluid collection measuring 3.5 x 1.8 x 2.6 cm in the gallbladder fossa with associated hypervascularity (suggesting inflammation), has thi ck organized preciado (suggesting chronicity), septations. Could be chronic abscess and/or biloma correl ating with prior CT scan. IMPRESSION: Complex fluid collection in gallbladder fossa, probably biloma and/or chronic abscess. Reviewed, dictated and finalized at location B. IMPRESSION: Complex fluid collection in gallbladder fossa, probably biloma and/ or chronic abscess.
== END 2019-12-21 11:02 | disposition home or self-care (01) ==
LOC: ANHIMG 11:05
PROVIDERS: Visit Provider Nurse Practitioner Family
DX: D72.829 Elevated white blood cell count, unspecified (principal)
CPT/HCPCS: 76705

== ENCOUNTER 2019-12-22 08:59 | Outpatient (CLI) | payer OTHER, SELFPAY ==
[2019-12-22 09:43] LABS: Hematocrit 40.6 % (42.0-52.0); Hemoglobin 13.1 g/dL (14.0-18.0); Mean Corpuscular HGB Conc 32.3 g/dl (32-36); Mean Corpuscular Hemoglobin 28.2 pg (26-34); Mean Corpuscular Volume 87.5 fl (80-100); Mean Platelet Volume 10.2 fl (7.4-10.4); Platelet Count Result 310 k/mm3 (150-375); Red Blood Count 4.64 M/mm3 (4.6-6.20); Red Cell Distribution Width 13.4 % (11.5-14.5); White Blood Count 11.3 K/mm3 (4.5-10.0)
== END 2019-12-22 09:00 | disposition home or self-care (01) ==
PROVIDERS: Visit Provider Surgery
DX: K75.0 Abscess of liver (principal); K82.A2 Perforation of gallbladder in cholecystitis
CPT/HCPCS: 36415; 85027

== ENCOUNTER 2019-12-23 08:51 | Outpatient (CLI) | payer OTHER, SELFPAY ==
--- NOTE | ~2019-12-23 | NM_ITS ---
EXAMINATION: NM hepatobiliary wo pharm DATE: 12/23/2019 11:58 INDICATION: Abdominal pain after cholecystectomy. COMPARISON: CT abdomen and pelvis 11/15/2019 TECHNIQUE: 4.8 mCi Tc-99m mebrofenin (Choletec) was administered intravenously. Scintigraphic images of the abdomen were obtained for one hour. FINDINGS: There is normal clearance of radiotracer from the blood pool. There is homogeneous tracer u ptake by the liver. Activity progresses to the bowel. IMPRESSION: 1. Normal hepatobiliary scintigraphy status post cholecystectomy. No bile leak. Reviewed, dictated and finalized at location A. IMPRESSION: 1. Normal hepatobiliary scintigraphy status post cholecystectomy. No bile leak .
== END 2019-12-23 08:52 | disposition home or self-care (01) ==
LOC: ANHIMG 08:58
PROVIDERS: Visit Provider Surgery
DX: K75.0 Abscess of liver (principal); K81.9 Cholecystitis, unspecified; K82.A2 Perforation of gallbladder in cholecystitis
CPT/HCPCS: 78226; A9537

== ENCOUNTER 2020-02-23 10:28 | Outpatient (CLI) | payer OTHER, SELFPAY ==
[2020-02-23 10:40] LABS: Basophils Absolute Auto 0.1 K/mm3 (0.0-0.1); Basophils Percent Auto 0.5 % (0.2-1.2); Eosinophils Absolute Auto 0.2 K/mm3 (0-0.3); Eosinophils Percent Auto 2.2 % (0-4.4); Hematocrit 43.5 % (42.0-52.0); Hemoglobin 14.1 g/dL (14.0-18.0); Immature Granulocyte Absolute 0.03 K/mm3 (0.00-0.031); Immature Granulocyte Percent A 0.3 % (0-0.5); Lymphocytes Absolute Auto 2.58 K/mm3 (0.9-3.2); Lymphocytes Percent Auto 25.4 % (18.3-44.2); Mean Corpuscular HGB Conc 32.4 g/dl (32-36); Mean Corpuscular Hemoglobin 27.8 pg (26-34); Mean Corpuscular Volume 85.6 fl (80-100); Mean Platelet Volume 9.5 fl (7.4-10.4); Monocytes Absolute Auto 0.7 K/mm3 (0.1-0.6); Monocytes Percent Auto 6.8 % (2.6-8.5); Neutrophils Absolute Auto 6.6 K/mm3 (1.3-6.7); Neutrophils Percent Auto 64.8 % (45.5-73.1); Platelet Count Result 415 k/mm3 (150-375); Red Blood Count 5.08 M/mm3 (4.6-6.20); Red Cell Distribution Width 14.5 % (11.5-14.5); White Blood Count 10.2 K/mm3 (4.5-10.0)
== END 2020-02-23 10:29 | disposition home or self-care (01) ==
LOC: ANHLAB 10:29
PROVIDERS: Visit Provider Surgery
DX: K75.0 Abscess of liver (principal); K82.A2 Perforation of gallbladder in cholecystitis
CPT/HCPCS: 36415; 85025

== ENCOUNTER 2020-11-08 04:42 | Observation (INO) | payer OTHER, SELFPAY ==
[2020-11-08] VITALS (8 sets, daily range): BP systolic 127–162; BP diastolic 70–101; PULSE 70–97; RESP 12–20; TEMP 36.2–37.1; O2SAT 98–100; BMI 25.2
--- NOTE | ~2020-11-08 | CT_ITS ---
EXAMINATION: CT abdomen pelvis w con EXAM DATE: 11/08/2020 08:19 INDICATION: Nausea and vomiting for 36 hours. TECHNIQUE: Spiral CT of the abdomen and pelvis was performed following intravenous injection of 100 m L Omnipaque 350. Axial, coronal and sagittal images were reviewed. The dose-length product (DLP) fo r this examination was 386.70 mGy-cm. The exposure was tailored according to patient size (auto mA e xposure control), and iterative reconstruction (ASIR) was used as additional dose reduction technique . Comparison is made to prior examination from 11/15/2019. FINDINGS: The liver, spleen, adrenal glands and pancreas are unremarkable. There are cholecystectomy clips. Portal and splenic veins are patent. Kidneys enhance symmetrically. There is no hydronephr osis. The prostate is unremarkable. The bladder is unremarkable. There is no retroperitoneal or p elvic lymphadenopathy. There is a small umbilical fat-containing hernia. The appendix is normal. The stomach and small bowel are unremarkable. There is moderate to large am ount of colonic stool. No free intraperitoneal gas. The heart is normal in size. There are no pe ricardial or pleural effusions. The lung bases are unremarkable. There is a 6 mm left femoral head sclerotic focus likely bone island. IMPRESSION: 1. Moderate to large amount of colonic stool. Correlate for constipation. 2. Small umbilical fat-containing hernia. Reviewed, dictated and finalized at location B. [employer]
--- NOTE | 2020-11-08 05:01 | ED.NAVMDI ---
HPI - Nausea/Vomiting/Diarrhea General Chief complaint: Nausea/Vomiting/Diarrhea <Kirill RColton Smith - Last Filed: 11/08/20 06:47> Stated complaint: vomiting <Kirill StephensColton Irvintiffany DO - Last Filed: 11/08/20 06:47> Time Seen by Provider: 11/08/20 04:59 <Kirill Smith DO - Last Filed: 11/08/20 06:47> Source: patient <Kirill Carmona Sarah - Last Filed: 11/08/20 06:47> Mode of arrival: ambulatory <Kirill Mathew Smith - Last Filed: 11/08/20 06:47> Limitations: no limitations <Kirill Mathew Smith - Last Filed: 11/08/20 06:47> History of Present Illness HPI Narrative: 30-year-old male comes into the emergency department by EMS for complaints of nausea and vomiting for the last 36 hours. Patient states that he has vomited several times. He also endorses some abdominal pain. Patient does admit to recently injecting fentanyl. He does abuse IV drugs. <Kirill Mathew Smith - Last Filed: 11/08/20 06:47> Related Data Home medications: Home Medications Medication Instructions Recorded Confirmed No Home Medications 11/08/20 11/08/20 <Kirill Smith DO - Last Filed: 11/08/20 06:47> Allergies/Adverse reactions: Allergies Allergy/AdvReac Type Severity Reaction Status Date / Time No Known Allergies Allergy Verified 11/08/20 14:51 <Kirill Smith - Last Filed: 11/08/20 06:47> Review of Systems Review of Systems: Narrative: CONSTITUTIONAL: Denies fever, chills, or sweats. EYES: Denies visual changes, redness, or discharge. ENT: Denies rhinorrhea, congestion, sore throat, or otalgia. CARDIOVASCULAR: Denies chest pain, palpitations, or edema. RESPIRATORY: Denies cough or dyspnea. GASTROINTESTINAL: Endorses abdominal pain, nausea, vomiting. GENITOURINARY: Denies dysuria or hematuria. SKIN: Denies rash or itching. MUSCULOSKELETAL: Denies back pain, joint pain, or myalgia. NEUROLOGIC: Denies headache, numbness, dizziness, or weakness. PSYCHIATRIC: Denies anxiety or depression. <Kirill Smith, DO - Last Filed: 11/08/20 06:47> [facility] Past Medical History Medical History: Medical History (Updated 11/10/20 @ 08:06 by Eliseo Carpio MD) Asthma Cholecystitis with perforation of gallbladder (~11/2019) Constipation due to opioid therapy History of bacteremia (~09/2016) Attributed to IV drug use. Nicotine dependence Opiate addiction Patient admits to injecting fentanyl intravenously q.4 hours. <Kirill Smith, DO - Last Filed: 11/08/20 06:47> Surgical History Surgical History: Surgical History (Updated 11/08/20 @ 18:04 by Sherine Sapp PA-C) History of laparoscopic cholecystectomy (~11/15/19) With drainage of hepatic abscess. <Kirill Smith, DO - Last Filed: 11/08/20 06:47> Family History Family History: Family History Father Gallbladder disease Sibling Gallbladder disease <Kirill Smith, DO - Last Filed: 11/08/20 06:47> Social History Social History: Social History (Updated 11/09/20 @ 03:55 by Sherine Sapp PA-C) Social History: Surrogate decision maker: Estevan Ocasio, father. Code status: Full code. Smoking packs per day: 1 Smoking cigarettes per day: 20.0 Years smoked: 15 Smoking pack-years: 15.00 Smoking status: Current every day smoker Tobacco type: cigarettes Second hand tobacco smoke exposure: Yes Alcohol intake: never Substance use: current Substance use type: amphetamines, opiates and other Other substance usage details: IV drug use off and on for 5+ years. Previously on Suboxone. Last use: Last used amphetamines 1 month ago. Additional living arrangements comments: Lives with his father in [place]. 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 Gender identity (if verbalized by the patient): Male Sexual Orientation (if Verbalized by the Patient): Straight or Heterosexu
[2020-11-08] MEDS: MORPHINE SULFATE (*CRX) 2 MG/ML INJ IV PUSH ×2 (05:44→08:07)
[2020-11-08] MEDS: ONDANSETRON INJ 4 MG/2 ML VIAL IV PUSH ×4 (05:45→20:02)
[2020-11-08] MEDS: SODIUM CHLORIDE 0.9% IV 2,000 ML 999 ML (05:45)
[2020-11-08 07:18] LABS: Basophils Percent Auto 0.3 % (0.2-1.2); Eosinophils Percent Auto 0.1 % (0-4.4); Hematocrit 43.7 % (42.0-52.0); Hemoglobin 14.8 g/dL (14.0-18.0); Immature Granulocyte Absolute 0.05 K/mm3 (0.00-0.031); Immature Granulocyte Percent A 0.4 % (0-0.5); Lymphocytes Absolute Auto 1.11 K/mm3 (0.9-3.2); Lymphocytes Percent Auto 9.3 % (18.3-44.2); Mean Corpuscular HGB Conc 33.9 g/dl (32-36); Mean Corpuscular Hemoglobin 28.5 pg (26-34); Mean Corpuscular Volume 84.2 fl (80-100); Mean Platelet Volume 10.5 fl (7.4-10.4); Monocytes Absolute Auto 0.9 K/mm3 (0.1-0.6); Monocytes Percent Auto 7.1 % (2.6-8.5); Neutrophils Absolute Auto 9.9 K/mm3 (1.3-6.7); Neutrophils Percent Auto 82.8 % (45.5-73.1); Platelet Count Result 408 k/mm3 (150-375); Red Blood Count 5.19 M/mm3 (4.6-6.20); Red Cell Distribution Width 12.8 % (11.5-14.5); White Blood Count 11.9 K/mm3 (4.5-10.0)
[2020-11-08 07:37] LABS: Alanine Aminotransferase 30 U/L (4-50); Albumin Level 4.5 g/dL (3.5-5.1); Alkaline Phosphatase 150 U/L (38-126); Anion Gap 8 mmol/L (8-16); Aspartate Amino Transferase 39 U/L (17-59); Bilirubin,Total 0.4 mg/dL (0.2-1.3); Blood Urea Nitrogen 19 mg/dL (9-20); Calcium 10.4 mg/dL (8.4-10.2); Carbon Dioxide 32 mmol/L (22-30); Chloride 101 mmol/L (98-107); Estimated CRCL calculation 104 ml/min; Estimated Glomerular Filt Rate > 60; Glucose 110 mg/dL (75-110); Lipase 29 U/L (23-300); Sodium 141 mmol/L (137-145)
[2020-11-08 07:58] LABS: Add Urine Microscopic? YES; Appearance Urine Clear (Clear); Bacteria Urine 2+ /hpf; Bilirubin Urine Negative (Negative); Blood Urine Negative (Negative); Color Urine Yellow (Yellow); Glucose Urine UA Negative (Negative); Ketones Urine 1+ mg/dL (Negative); Leukocyte Esterase Ur Negative LEU/UL (Negative); Mucus Urine Moderate /lpf; Nitrate Urine Negative (Negative); Protein Urine 2+ mg/dL (Negative); RBC Urine 0-2 /hpf (0-2); Squamous Epithelial Cell Urine Rare /hpf (Few); WBC Urine 0-3 /hpf
[2020-11-08 08:06] LABS: Potassium 3.8 mmol/L (3.4-5.0)
[2020-11-08] MEDS: METHYLNALTREXONE 12 MG/0.6 ML VIAL SUB-Q (08:56)
[2020-11-08] MEDS: METOCLOPRAMIDE HCL INJ 10 MG/2 ML VIAL IV PUSH (09:24)
--- NOTE | 2020-11-08 10:47 | PC.NURSE ---
Pt. requested to make sure the cabinet is locked because he will have an urge to take a needle.
[2020-11-08] MEDS: PANTOPRAZOLE SODIUM IV 40 MG VIAL IV PUSH (13:59)
--- NOTE | 2020-11-08 14:30 | PC.NURSE ---
This patient, Omar Ocasio, was admitted to [facility] Surg Room 313-01. Patient/family oriented to hospital policies and general routines including ID bracelet, bed and alarms, visiting hours, pain management, procedures, bathroom and other care routines, personal items, smoking policy, room service/diet, and visiting hours. Information on how to activate the Rapid Response Team has been discussed. Patient/Family are encouraged to report perceived risks to care and to ask questions if they do not understand what they are told or what they should do.
--- NOTE | 2020-11-08 14:58 | PC.NURSE ---
Patient states feels like he is starting to withdraw. Notified Dr. Florence states will order medication for patient.
[2020-11-08] MEDS: chlordiazePOXIDE (*CRX) 25 MG CAPSULE 50 MG PO ×2 (15:14→23:22)
[2020-11-08] MEDS: LACTATED RINGERS 1,000 ML 125 ML IV CONT ×2 (15:21→23:22)
[2020-11-08] MEDS: cloNIDine HCL 0.1 MG TABLET PO (15:21)
--- NOTE | 2020-11-08 16:13 | WPDGICN ---
Assessment and Plan Assessment and plan (1) Nausea and vomiting in adult: Code(s): R11.2 - Nausea with vomiting, unspecified Status: Acute Assessment and Plan: from opioid withdrawing continue with supportive care, advance diet as tolerated and antiemetics prn no need to perform egd (2) Drug abuse, opioid type: Code(s): F11.10 - Opioid abuse, uncomplicated Status: Acute Assessment and Plan: librium and pain meds as needed by primary team patient says that would like to find methadone clinic if possible (3) Withdrawal from opioids: Code(s): F11.23 - Opioid dependence with withdrawal Status: Acute Assessment and Plan: unfortunately he is still using fentanyl IV, will need rehab (4) S/P cholecystectomy: Code(s): Z90.49 - Acquired absence of other specified parts of digestive tract Status: Acute Assessment and Plan: CT scan reviewed, no acute findings and liver enzymes ok (5) Constipation due to opioid therapy: Code(s): K59.03 - Drug induced constipation; T40.2X5A - Adverse effect of other opioids, initial encounter Status: Acute Assessment and Plan: had a good BM after relistor GI Consult Note Consult date/time: 11/08/20 16:13 Reason for consult: intractable N/V, fentanyl dependent HPI: Omar Ocasio is a 30 year old male who is addict to fentanyl (using every 4 hours IV and getting from the street ) for quite some time. He had laparoscopic cholecystectomy with drainage of hepatic abscess performed 11/15/2019, last visit to surgeon several months ago with subsequent HIDA scan performed 12/23/2019 showed normal hepatobiliary scintigraphy status post cholecystectomy. No bile leak. He unfortunately is still doing illicit drugs, last time used fentanyl was last night and started with intractable nausea and vomiting but worse than usual. He says that he has been through withdrawal multiple times, he came to ER and had CT scan reviewed that showed moderate to large amount of colonic stool, small umbilical fat-containing hernia given relistor with good BM. He was admitted because was still throwing up. No fever, no abdominal pain but he has chills and goosebumps , anxious and feeling like withdrawing. He says that morphine in ER helped and asking for one more dose, then he says that should help and hoping to go home afterwards. Review of Systems Constitutional: Constitutional: Reports chills Eyes: Eyes: Reports no additional eye complaints ENT: Reports system reviewed and no additional complaints, except as documented Cardiovascular: Cardiovascular: Reports no additional cardiovascular complaints Respiratory: Respiratory: Reports no additional respiratory complaints Gastrointestinal: Gastrointestinal: Reports nausea and Reports vomiting Genitourinary: Genitourinary: Denies dysuria Musculoskeletal: Musculoskeletal: Reports no additional musculoskeletal complaints Integumentary/Breasts: Skin/Breast: Denies pruritus Neurologic: Denies confusion Psychiatric: Psychiatric: Reports anxiety PMFSH Past Medical History Medical History (Updated 11/08/20 @ 16:28 by Phillip Sahu MD) Asthma Constipation due to opioid therapy Drug abuse, opioid type History of bacteremia 09/2016 was seen at [facility], was secondary to IV drug use. Nausea and vomiting in adult Substance abuse 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 Currently on Suboxone treatment. Withdrawal from opioids Surgical History Surgical History (Updated 11/08/20 @ 16:25 by Phillip Sahu MD) S/P cholecystectomy lap salima with drainage of hepatic abscess 11/15/2019 Family History Family History Father Gallbladder disease Sibling Gallbladder disease Social History Social History Smoking packs per day: 1 Smoking
--- NOTE | 2020-11-08 17:00 | PM.IMHP ---
H&P: HPI History of Present Illness Date/Time: 11/08/20 17:00 Chief Complaint: Nausea and vomiting. Narrative: This is a 30-year-old male smoker with a longstanding history of opioid addiction including IV fentanyl use flu presented to the emergency department earlier this morning via EMS with complaints of nausea and vomiting. He shoots up fentanyl every 4 hours as he typically begins having withdrawal symptoms around that time. Apparently last evening he must have run out of the drug and he has had pretty significant withdrawal symptoms including nausea, vomiting, anxiety, and sweats. Despite IV fluid rehydration antiemetics, he continued to have multiple episodes of emesis and was admitted in this setting. He also endorses constipation due to the fentanyl, but passed a large bowel movement after receiving a dose of Relistor. He has been given Librium and clonidine for withdrawal symptoms and he is comfortable at the time my evaluation. No emesis since being admitted to the floor. He denies fever, chills, and sweats. No hematemesis, melena, or hematochezia. No chest pain or shortness of breath. Review of Systems Review of Systems: Narrative: Twelve systems were reviewed with pertinent positives and negatives as per HPI. He has done inpatient rehab and has periods of time where he does not use drugs. States that he uses clean needles. Has been tested for hepatitis and HIV many years ago, but not recently. Previously on Suboxone however that caused him to feel on well so he stopped using it. Apparently he has taken methadone as well and that seems to help however he does not have reliable transportation to get to the methadone clinic each day. Last month he lost his brother to fentanyl overdose and he blames himself for that and is quite depressed regarding the of his brother. He is not suicidal or homicidal. Except as documented, all other systems were reviewed and are negative. [facility] Past Medical History Medical History (Updated 11/09/20 @ 03:54 by Sherine Sapp PA-C) Asthma Cholecystitis with perforation of gallbladder (~11/2019) Constipation due to opioid therapy History of bacteremia (~09/2016) Attributed to IV drug use. Nicotine dependence Opiate addiction Patient admits to injecting fentanyl intravenously q.4 hours. Surgical History Surgical History (Updated 11/08/20 @ 18:04 by Sherine G. Gerling, PA-C) History of laparoscopic cholecystectomy (~11/15/19) With drainage of hepatic abscess. Family History Family History Father Gallbladder disease Sibling Gallbladder disease Social History Social History (Updated 11/09/20 @ 03:55 by Sherine Sapp PA-C) Social History: Surrogate decision maker: Estevan Ocasio, father. Code status: Full code. Smoking packs per day: 1 Smoking cigarettes per day: 20.0 Years smoked: 15 Smoking pack-years: 15.00 Smoking status: Current every day smoker Tobacco type: cigarettes Second hand tobacco smoke exposure: Yes Alcohol intake: never Substance use: current Substance use type: amphetamines, opiates and other Other substance usage details: IV drug use off and on for 5+ years. Previously on Suboxone. Last use: Last used amphetamines 1 month ago. Additional living arrangements comments: Lives with his father in [place]. 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 Gender identity (if verbalized by the patient): Male Sexual Orientation (if Verbalized by the Patient): Straight or Heterosexual Spiritual care concerns: No Agree to blood products: Yes Meds Home Medications and Allergies Home Medications Medication Instructions Recorded Confirmed Type No Home Medications 11/08/20 11/08/20 History Allergies Allergy/AdvReac Type Severity Reaction Status Date / Time No Known Allergies Allergy Verified
[2020-11-08 19:11] LABS: CRP 1.9 mg/dL (<1.0)
--- NOTE | 2020-11-08 22:08 | PC.NURSE ---
Patient's father called on 11/08 in the evening to check in, spoke to nurse Rajan RN about the patient blaming himself for brothers ... I attempted to call the father back at 22:10 after med pass and left a message, will follow up with patient about any potential indicators for self harm or suicide. In reviewing admission notes, pt denied any feelings of self harm. I will follow up in an over abundance of caution, due to patients medical history being minimal.
--- NOTE | 2020-11-08 23:35 | PC.NURSE ---
found stash of 4 tourniquets under patient on bed when he got up to use the restroom. Pt stated he didn't know where they came from .. took out of room and discarded. Conducted focused assessment of mental health, pt denied any thoughts of harming himself or anyone else, but stated he felt depressed .. did not elaborate when asked. 23:30 on 11/08 -AEMaggie SAGASTUME
[2020-11-09 06:00] VITALS: BP 136/81; PULSE 90; RESP 18; TEMP 37; O2SAT 98
[2020-11-09] MEDS: ONDANSETRON INJ 4 MG/2 ML VIAL IV PUSH (06:02)
[2020-11-09] MEDS: chlordiazePOXIDE (*CRX) 25 MG CAPSULE 50 MG PO (06:02)
[2020-11-09 06:08] LABS: Hematocrit 38.2 % (42.0-52.0); Hemoglobin 12.9 g/dL (14.0-18.0); Mean Corpuscular HGB Conc 33.8 g/dl (32-36); Mean Corpuscular Hemoglobin 28.4 pg (26-34); Mean Corpuscular Volume 84.1 fl (80-100); Mean Platelet Volume 10.1 fl (7.4-10.4); Platelet Count Result 372 k/mm3 (150-375); Red Blood Count 4.54 M/mm3 (4.6-6.20); Red Cell Distribution Width 12.9 % (11.5-14.5); White Blood Count 10.2 K/mm3 (4.5-10.0)
[2020-11-09 06:17] LABS: Anion Gap 4 mmol/L (8-16); Blood Urea Nitrogen 13 mg/dL (9-20); Calcium 9.4 mg/dL (8.4-10.2); Carbon Dioxide 26 mmol/L (22-30); Chloride 107 mmol/L (98-107); Estimated CRCL calculation 132 ml/min; Estimated Glomerular Filt Rate > 60; Glucose 102 mg/dL (75-110); Magnesium 1.8 mg/dL (1.6-2.3); Potassium 3.9 mmol/L (3.4-5.0); Sodium 137 mmol/L (137-145)
--- NOTE | 2020-11-09 07:22 | PC.NURSE ---
Addendum entered by Jolanta Alfred RN 11/09/20 07:38: pt removed own IV prior to letting us know he wanted to leave AMA Original Note: Pt left AMA at 0705. Stated he was feeling all better and wanted to free up the room for another patient. Signed AMA form. Dr. Florence and charge are aware of pt leaving AMA. Upon leaving, an empty vial of Reglan was found in patients bed, he stated it was on the floor and also he didn't know where it came from . Pt left on the elevator to wait in the lobby for his ride.-MAKI SAGASTUME
--- NOTE | 2020-11-19 16:24 | PM.DS ---
DS: Admitting Diagnosis Admitting Diagnosis Admitting Diagnosis: Chief Complaint: Nausea and vomiting. DS: Summary Hospital Course Reason for hospitalization: patient left AMA Hospital Course: Patient left AMA Time Spent with Patient Time attestation: Total time spent providing and/or coordinating discharge services: Discharge Plan Discharge Consulting providers: Phillip Sahu ; Sherine Sapp ; Anmol Tidwell Patient Disposition: Left Against Medical Advice Discharge Medications: No Action No Home Medications RF: 0 Date of admission: 11/08/20 11:33 Primary Care Provider: RodrigoForeign Admitting Provider: Natasha Florence Attending physician on admission: Humberto Dennis Condition: Stable Quality VTE Prophylaxis VTE prophylaxis: mechanical ordered
== END 2020-11-09 07:05 | disposition left against medical advice (07) ==
LOC: ANHED 07:55 → ANH3MEDSUR 12:57
PROVIDERS: Emergency Medicine; Physician Assistant; Admitting Provider Family Medicine; Emergency Provider Emergency Medicine; PCP Family Medicine; Visit Provider Physician Assistant
DX: R11.2 Nausea with vomiting, unspecified (principal); F11.23 Opioid dependence with withdrawal; J45.909 Unspecified asthma, uncomplicated; Z90.49 Acquired absence of other specified parts of digestive tract; F17.210 Nicotine dependence, cigarettes, uncomplicated; F15.90 Other stimulant use, unspecified, uncomplicated; K59.03 Drug induced constipation; T40.2X5A Adverse effect of other opioids, initial encounter; K42.9 Umbilical hernia without obstruction or gangrene
CPT/HCPCS: 36415; 74177; 80048; 80053; 81001; 83690; 83735; 85025; 85027; 86140; 87040; 96361; 96372; 96374; 96375; 96376; 99285; A9270; C9113; G0378; G0379; J2212; J2270; J2405; J2765; J7030; J7120; Q9967

== ENCOUNTER 2020-12-19 18:48 | Emergency (ER) | payer OTHER, SELFPAY ==
--- NOTE | ~2020-12-19 | CT_ITS ---
EXAMINATION: CT abdomen pelvis w con INDICATION: Nausea, vomiting, abdominal pain TECHNIQUE: Computed tomographic images of the abdomen and pelvis were obtained after the administrati on of 100 cc of Omnipaque 350 intravenous contrast. The dose-length product (DLP) was 313.23 mGy-cm. Automated exposure control and iterative reconstruction technique were employed. COMPARISON: 11/08/2020 FINDINGS: The lung bases are clear. The heart size is normal. The gallbladder is surgically absent. T he liver, pancreas, and adrenal glands are normal. A 7 mm low-attenuation lesion in the inferior pole of the spleen likely represents a cyst or lymphangioma. The kidneys are unremarkable. No pathologica lly enlarged abdominal or pelvic lymph nodes are identified. A large volume of colonic stool is prese nt. There are mildly dilated loops of proximal small bowel without focal transition point. Sclerotic lesion left femoral head likely reflect bone islands. IMPRESSION: 1. Mildly dilated proximal small bowel, likely ileus. 2. Constipation. Reviewed, dictated and finalized at location A.
[2020-12-19 19:00] VITALS: BP 173/97; RESP 16; TEMP 35.3; O2SAT 100
[2020-12-19 19:15] LABS: Hematocrit 48.6 % (42.0-52.0); Hemoglobin 16.7 g/dL (14.0-18.0); Mean Corpuscular HGB Conc 34.4 g/dl (32-36); Mean Corpuscular Hemoglobin 28.6 pg (26-34); Mean Corpuscular Volume 83.4 fl (80-100); Mean Platelet Volume 9.8 fl (7.4-10.4); Platelet Count Result 445 k/mm3 (150-375); Red Blood Count 5.83 M/mm3 (4.6-6.20); Red Cell Distribution Width 13.6 % (11.5-14.5); White Blood Count 21.8 K/mm3 (4.5-10.0)
[2020-12-19 19:39] LABS: Alanine Aminotransferase 42 U/L (4-50); Albumin Level 5.4 g/dL (3.5-5.1); Alkaline Phosphatase 168 U/L (38-126); Anion Gap 17 mmol/L (8-16); Aspartate Amino Transferase 44 U/L (17-59); Bilirubin,Total 0.7 mg/dL (0.2-1.3); Blood Urea Nitrogen 30 mg/dL (9-20); Calcium 11.3 mg/dL (8.4-10.2); Carbon Dioxide 25 mmol/L (22-30); Chloride 100 mmol/L (98-107); Estimated CRCL calculation 104 ml/min; Estimated Glomerular Filt Rate > 60; Glucose 129 mg/dL (75-110); Lipase 46 U/L (23-300); Sodium 142 mmol/L (137-145)
--- NOTE | 2020-12-19 19:53 | ED.NAVMDI ---
HPI - Nausea/Vomiting/Diarrhea General Chief complaint: Nausea/Vomiting/Diarrhea Stated complaint: vomiting blood, n/v x 3 days Time Seen by Provider: 12/19/20 19:42 Source: patient Mode of arrival: ambulatory Limitations: no limitations History of Present Illness HPI Narrative: Patient is a 30-year-old male complaining of nausea and vomiting for the past 2 to 3 days. Patient states that he is withdrawing from fentanyl and but states he was prescribed methadone for his withdrawals and to help with his drug use but it is not working. Pt states last time he use fentanyl was yesterday. Patient states that last time he was here he was given Ativan which provided relief. Patient also complaining of abdominal cramping but only when he vomits. Denies any chest pain, shortness of breath, diarrhea, fever or chills. Related Data Home Medications Medication Instructions Recorded Confirmed No Home Medications 11/08/20 11/08/20 Allergies Allergy/AdvReac Type Severity Reaction Status Date / Time No Known Allergies Allergy Verified 11/08/20 14:51 Review of Systems Review of Systems: All systems reviewed & are unremarkable except as noted in HPI and below Constitutional: Constitutional: Denies body ache(s), Denies chills, Denies excessive sweating, Denies fatigue, Denies fever(s), Denies headache(s), Denies lethargy, Denies malaise, Denies weakness and Denies weight loss Eyes: Eyes: Denies blurry vision, Denies change in vision and Denies loss of vision ENT: Denies dizziness, Denies ear discharge, Denies headache(s), Denies lip swelling, Denies epistaxis, Denies nasal congestion, Denies neck pain, Denies throat swelling and Denies tongue swelling Cardiovascular: Cardiovascular: Denies chest pain, Denies chest pain at rest, Denies chest pain with activity, Denies diaphoresis, Denies rapid heart rate, Denies edema, Denies irregular heart rhythm, Denies lightheadedness, Denies palpitations, Denies dyspnea and Denies dyspnea on exertion Respiratory: Respiratory: Denies chest congestion, Denies cough, Denies hemoptysis, Denies dyspnea and Denies dyspnea on exertion Gastrointestinal: Gastrointestinal: Denies abdominal pain, Denies melena, Denies hematochezia and Denies diarrhea Musculoskeletal: Musculoskeletal: Denies abnormal gait, Denies deformity, Denies joint swelling, Denies limited range of motion, Denies neck pain and Denies numbness Neurologic: Denies Abnormal speech present, Denies abnormal gait, Denies confusion, Denies dizziness, Denies headache(s), Denies focal weakness, Denies loss of vision, Denies numbness, Denies Other visual disturbances, Denies Sensory deficit (Neuro) and Denies weakness Psychiatric: Psychiatric: Denies confusion, Denies depression, Denies auditory hallucinations, Denies homicidal ideation and Denies suicidal ideation Endocrine: Endocrine: Denies cold intolerance, Denies excessive sweating, Denies fatigue, Denies heat intolerance and Denies palpitations Hematologic/Lymphatic: Hematologic/Lymphatic: Denies easy bleeding and Denies easy bruising Allergic/Immunologic: Allergic/Immunologic: Denies lip swelling, Denies throat swelling and Denies tongue swelling PMFSH Past Medical History Medical History Asthma Cholecystitis with perforation of gallbladder (~11/2019) Constipation due to opioid therapy History of bacteremia (~09/2016) Attributed to IV drug use. Nicotine dependence Opiate addiction Patient admits to injecting fentanyl intravenously q.4 hours. Surgical History Surgical History History of laparoscopic cholecystectomy (~11/15/19) With drainage of hepatic abscess. Family History Family History Father Gallbladder disease Sibling Gallbladder disease Social History Social History (Reviewed 12/19/20 @ 19:55 by Hua Cason
[2020-12-19 20:01] LABS: Band Neutrophils Percent 1 % (0-6); Lymphocytes Absolute Manual 1.09 K/mm3 (1.1-4.5); Monocytes Absolute Manual 1.74 K/mm3 (0.1-0.90); Monocytes Percent Manual 8 % (3-9); Neutrophils Absolute Manual 18.96 K/mm3 (1.3-6.7); Neutrophils Percent Manual 86 % (46-73); Total Cells Counted 100
[2020-12-19 20:02] LABS: Platelet Estimate Increased (Adequate)
[2020-12-19] MEDS: SODIUM CHLORIDE 0.9% IV 1,000 ML 999 ML IV CONT (20:36)
[2020-12-19] MEDS: PROMETHAZINE HCL 25 MG/ML AMPUL 12.5 MG IV PUSH (20:37)
[2020-12-19 20:42] VITALS: BP 142/91; PULSE 88; RESP 20; O2SAT 100
[2020-12-19] MEDS: LACTATED RINGERS 1,000 ML 999 ML IV CONT (22:10)
--- NOTE | 2020-12-19 22:10 | PC.NURSE ---
RN found towel on floor. pt. states he dropped his vomit bag so he threw up all over the floor.
[2020-12-19] MEDS: ONDANSETRON INJ 4 MG/2 ML VIAL IV PUSH (22:40)
--- NOTE | 2020-12-19 22:42 | PC.NURSE ---
Pt threw up on floor multiple times.
[2020-12-19 23:46] VITALS: BP 136/78; PULSE 84; RESP 20; O2SAT 98
== END 2020-12-19 23:46 | disposition home or self-care (01) ==
PROVIDERS: Emergency Medicine; Emergency Provider Emergency Medicine; PCP Family Medicine
DX: R11.2 Nausea with vomiting, unspecified (principal); F11.10 Opioid abuse, uncomplicated; J45.909 Unspecified asthma, uncomplicated; F17.210 Nicotine dependence, cigarettes, uncomplicated
CPT/HCPCS: 36415; 74177; 80053; 83690; 85025; 96361; 96374; 96375; 99284; J2405; J2550; J7030; J7120; Q9967

== ENCOUNTER 2020-12-26 20:37 | Emergency (ER) | payer OTHER, SELFPAY ==
[2020-12-26 20:52] VITALS: BP 129/72; PULSE 90; RESP 16; TEMP 36.8; O2SAT 100
[2020-12-26 23:17] VITALS: BP 133/76; PULSE 82; RESP 16; TEMP 36.2; O2SAT 100
--- NOTE | 2020-12-26 23:49 | ED.GENADULT ---
HPI - General Adult General Chief complaint: Allergic Reaction Stated complaint: covid shot reaction, swelling to legs Time Seen by Provider: 12/26/20 22:58 Source: patient History of Present Illness HPI narrative: Patient is a 30 y/o male complaining of bilateral lower leg and feet pain and swelling starting 3 days ago. He describes his pain as feeling like being hit by a hammer. He rates his pain as 8/10. There is no alleviating or exacerbating factor. He has no fever, chills, nausea or vomiting. He had COVID vaccine 4 days ago. Related Data Allergies Allergy/AdvReac Type Severity Reaction Status Date / Time No Known Allergies Allergy Verified 11/08/20 14:51 Review of Systems Constitutional: Constitutional: Denies chills, Denies fever(s), Denies headache(s) and Denies weakness Eyes: Eyes: Denies blurry vision ENT: Denies headache(s) and Denies neck pain Cardiovascular: Cardiovascular: Denies chest pain and Denies dyspnea Respiratory: Respiratory: Denies cough and Denies dyspnea Gastrointestinal: Gastrointestinal: Denies abdominal pain, Denies diarrhea, Denies nausea and Denies vomiting Genitourinary: Genitourinary: Denies hematuria and Denies dysuria Musculoskeletal: Musculoskeletal: Denies back pain, Denies neck pain and Reports other (bilateral leg pain and swelling) Neurologic: Denies headache(s) and Denies weakness PMFSH Past Medical History Medical History Asthma Cholecystitis with perforation of gallbladder (~11/2019) Constipation due to opioid therapy History of bacteremia (~09/2016) Attributed to IV drug use. Nicotine dependence Opiate addiction Patient admits to injecting fentanyl intravenously q.4 hours. Surgical History Surgical History History of laparoscopic cholecystectomy (~11/15/19) With drainage of hepatic abscess. Family History Family History Father Gallbladder disease Sibling Gallbladder disease Social History Social History Social History: Surrogate decision maker: Estevan Ocasio, father. Code status: Full code. Smoking packs per day: 1 Smoking cigarettes per day: 20.0 Years smoked: 15 Smoking pack-years: 15.00 Smoking status: Current every day smoker Tobacco type: cigarettes Second hand tobacco smoke exposure: Yes Alcohol intake: never Substance use: current Substance use type: amphetamines, opiates and other Other substance usage details: IV drug use off and on for 5+ years. Previously on Suboxone. Last use: Last used amphetamines 1 month ago. Additional living arrangements comments: Lives with his father in [place]. Additional occupation/education comments: [employer] though not currently employed. Gender identity (if verbalized by the patient): Male Spiritual care concerns: No Agree to blood products: Yes Exam Const: General: no acute distress and well developed Orientation/consciousness: oriented to person, oriented to place, oriented to time and patient oriented x3 HENMT: Head: normocephalic Ears: external ears normal General nose exam: Normal external nose present Eyes: General: appearance normal, both eyes and all related structures Conjunctivae: conjunctivae normal Neck: Neck: normal visual inspection and full ROM Chest: Chest palpation & inspection: normal inspection of the chest and no tenderness Resp: Effort & Inspection: normal respiratory effort Auscultation: clear to auscultation bilaterally Cardio: Rate: regular rate Rhythm: regular rhythm GI: GI Palp: No abdominal tenderness and Yes Soft to palpation Skin: General skin exam: normal color, turgor normal and erythema (bilateral leg) Neuro: General: oriented to person, oriented to place, oriented to time and patient oriented x3 Cogni
[2020-12-26 23:50] LABS: Basophils Percent Auto 0.4 % (0.2-1.2); Eosinophils Absolute Auto 0.5 K/mm3 (0-0.3); Eosinophils Percent Auto 5.1 % (0-4.4); Hematocrit 38.8 % (42.0-52.0); Hemoglobin 12.7 g/dL (14.0-18.0); Immature Granulocyte Absolute 0.03 K/mm3 (0.00-0.031); Immature Granulocyte Percent A 0.3 % (0-0.5); Lymphocytes Absolute Auto 2.54 K/mm3 (0.9-3.2); Lymphocytes Percent Auto 24.6 % (18.3-44.2); Mean Corpuscular HGB Conc 32.7 g/dl (32-36); Mean Corpuscular Hemoglobin 28.8 pg (26-34); Mean Platelet Volume 10.4 fl (7.4-10.4); Monocytes Absolute Auto 1.1 K/mm3 (0.1-0.6); Monocytes Percent Auto 10.9 % (2.6-8.5); Neutrophils Absolute Auto 6.1 K/mm3 (1.3-6.7); Neutrophils Percent Auto 58.7 % (45.5-73.1); Platelet Count Result 327 k/mm3 (150-375); Red Blood Count 4.41 M/mm3 (4.6-6.20); Red Cell Distribution Width 13.3 % (11.5-14.5); White Blood Count 10.3 K/mm3 (4.5-10.0)
[2020-12-26 23:59] LABS: Alanine Aminotransferase 24 U/L (4-50); Albumin Level 4.2 g/dL (3.5-5.1); Alkaline Phosphatase 88 U/L (38-126); Anion Gap 1 mmol/L (8-16); Aspartate Amino Transferase 38 U/L (17-59); Bilirubin,Total 0.1 mg/dL (0.2-1.3); Blood Urea Nitrogen 12 mg/dL (9-20); Calcium 9.9 mg/dL (8.4-10.2); Carbon Dioxide 37 mmol/L (22-30); Chloride 103 mmol/L (98-107); Estimated CRCL calculation 112 ml/min; Estimated Glomerular Filt Rate > 60; Glucose 90 mg/dL (75-110); Potassium 4.1 mmol/L (3.4-5.0); Sodium 141 mmol/L (137-145)
[2020-12-27 00:04] LABS: D Dimer 0.85 ug/mL (<0.48)
[2020-12-27 00:42] VITALS: BP 167/110; PULSE 60; RESP 14; O2SAT 100
[2020-12-27 00:52] LABS: NT Pro B Type Natriuretic Pept 92 PG/ML (5-100)
[2020-12-27 01:23] VITALS: TEMP 36.3
== END 2020-12-27 01:25 | disposition home or self-care (01) ==
PROVIDERS: Emergency Provider Emergency Medicine; PCP Family Medicine
DX: L03.116 Cellulitis of left lower limb (principal); L03.115 Cellulitis of right lower limb; J45.909 Unspecified asthma, uncomplicated; F17.210 Nicotine dependence, cigarettes, uncomplicated
CPT/HCPCS: 36415; 80053; 83880; 85025; 85380; 99283

== ENCOUNTER 2021-04-24 09:23 | Emergency (ER) | payer OTHER, SELFPAY ==
--- NOTE | ~2021-04-24 | CT_ITS ---
EXAMINATION: CT cervical spine wo con DATE: 04/24/2021 10:27 INDICATION: Neck pain TECHNIQUE: Computed tomography (CT) of the cervical spine was performed without intravenous contrast. The dose-length product (DLP) was 382.04 mGy-cm. Automated exposure control and iterative reconstruc tion technique were employed. COMPARISON: None FINDINGS: There is no fracture, dislocation, or subluxation. The vertebral body heights, alignment, a nd intervertebral disc spaces are normal. The paravertebral soft tissues are unremarkable. The odonto id is intact. IMPRESSION: 1. No acute osseous abnormality. Reviewed, dictated and finalized at location B.
[2021-04-24 09:42] VITALS: BP 124/86; PULSE 75; RESP 16; TEMP 36.3; O2SAT 100
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
[2021-04-24 12:35] VITALS: BP 128/80; PULSE 76; RESP 16; TEMP 36.7; O2SAT 100
== END 2021-04-24 12:35 | disposition home or self-care (01) ==
PROVIDERS: Emergency Provider Emergency Medicine; PCP Family Medicine
DX: M54.2 Cervicalgia (principal); F17.210 Nicotine dependence, cigarettes, uncomplicated; V89.2XXA Person injured in unspecified motor-vehicle accident, traffic, initial encounter
CPT/HCPCS: 72125; 99284

== ENCOUNTER 2022-12-30 18:44 | Emergency (ER) | payer OTHER, SELFPAY ==
--- NOTE | ~2022-12-30 | CT_ITS ---
Clinical Indication: Chest pain, abdominal pain CT Scan of the Chest, Abdomen, and Pelvis with Contrast: Technique: Contiguous sections were acquired throughout the chest, abdomen, and pelvis after intraven ous administration of 100 cc of Omnipaque 350. Dose reduction technique was used on this scan by antonio krueger automated exposure control and iterative reconstruction technique. The dose-length product (DL P) was 826.58 mGy-cm. COMPARISON: 12/19/2020 Findings: There is no evidence of any significant mediastinal, hilar or axillary lymphadenopathy. No large cent ral pulmonary embolus seen. No aortic aneurysm or dissection. There is no evidence of pleural or pericardial effusion. The lungs are clear. No pulmonary nodules or infiltrates are noted. The liver, spleen, pancreas, adrenals and kidneys are within normal limits. Cholecystectomy clips are present. No evidence of aortic aneurysm. No lymphadenopathy. No bowel obstruction or bowel wall thickening. There is no evidence to suggest acute appendicitis. Urinary bladder is unremarkable. Prostate gland and seminal vesicles are unremarkable. No pelvic mass seen. No ascites. Impression: No significant abnormalities seen. Reviewed, dictated and finalized at [facility]. Impression: No significant abnormalities seen.
--- NOTE | ~2022-12-30 | XR_ITS ---
EXAMINATION: XR chest 2V 12/30/2022 19:11 INDICATION: Chest pain PROCEDURE: 2 view chest COMPARISON: No prior studies for comparison. FINDINGS: The lungs are clear. The cardiomediastinal silhouette is within normal limits. There are no pleural effusions. There is no pneumothorax suspected. IMPRESSION: 1: NO ACUTE CARDIOPULMONARY DISEASE. Reviewed, dictated and finalized at location A.
[2022-12-30 18:46] VITALS: BP 144/65; PULSE 84; RESP 16; TEMP 36.6; O2SAT 96
--- NOTE | 2022-12-30 18:46 | ECG_ITS ---
Measurements Intervals [place] Rate: 64 P: 18 MD: 175 QRS: -20 QRSD: 95 T: 15 QT: 405 QTc: 419 Interpretive Statements SINUS RHYTHM LEFTWARD AXIS POOR R-WAVE PROGRESSION ABNORMAL ECG NO PREVIOUS ECG AVAILABLE FOR COMPARISON Electronically Signed On 12-31-2022 7:05:21 CDT by Estevan Szymanski M.D.
--- NOTE | 2022-12-30 19:05 | PC.NURSE ---
Patient was stuck twice with a butterfly needle in both AC veins but the blood draw unsuccessful.
[2022-12-30 20:29] LABS: Basophils Percent Auto 0.4 % (0.2-1.2); Eosinophils Absolute Auto 0.1 K/mm3 (0-0.3); Eosinophils Percent Auto 1.1 % (0-4.4); Hemoglobin 12.3 g/dL (14.0-18.0); Immature Granulocyte Absolute 0.03 K/mm3 (0.00-0.031); Immature Granulocyte Percent A 0.3 % (0-0.5); Lymphocytes Absolute Auto 2.48 K/mm3 (0.9-3.2); Lymphocytes Percent Auto 27.6 % (18.3-44.2); Mean Corpuscular HGB Conc 33.2 g/dl (32-36); Mean Corpuscular Hemoglobin 28.8 pg (26-34); Mean Corpuscular Volume 86.7 fl (80-100); Mean Platelet Volume 9.6 fl (7.4-10.4); Monocytes Absolute Auto 0.8 K/mm3 (0.1-0.6); Monocytes Percent Auto 9.2 % (2.6-8.5); Neutrophils Absolute Auto 5.5 K/mm3 (1.3-6.7); Neutrophils Percent Auto 61.4 % (45.5-73.1); Platelet Count Result 316 k/mm3 (150-375); Red Blood Count 4.27 M/mm3 (4.6-6.20); Red Cell Distribution Width 13.3 % (11.5-14.5)
[2022-12-30 20:37] VITALS: PULSE 75
[2022-12-30 20:40] LABS: Prothrombin Time 12.7 Seconds (11.1-14.7)
[2022-12-30 20:41] LABS: Partial Thromboplastin Time 31.5 SECONDS (22.3-36.8)
[2022-12-30 20:44] LABS: Alanine Aminotransferase 25 U/L (6-50); Albumin Level 3.9 g/dL (3.5-5.1); Alkaline Phosphatase 100 U/L (38-126); Anion Gap 5 mmol/L (8-16); Aspartate Amino Transferase 27 U/L (17-59); Bilirubin,Total 0.3 mg/dL (0.2-1.3); Blood Urea Nitrogen 13 mg/dL (9-20); Calcium 8.9 mg/dL (8.4-10.2); Carbon Dioxide 30 mmol/L (22-30); Chloride 102 mmol/L (98-107); Estimated CRCL calculation 125 ml/min; Estimated Glomerular Filt Rate > 60; Glucose 90 mg/dL (65-110); Lipase 33 U/L (23-300); Potassium 3.9 mmol/L (3.4-5.0); Sodium 137 mmol/L (137-145)
[2022-12-30 20:54] LABS: Troponin I < 0.012 ng/mL (0.000-0.034)
[2022-12-30 22:32] LABS: Troponin I < 0.012 ng/mL (0.000-0.034)
--- NOTE | 2022-12-30 23:36 | PC.NURSE ---
Pts fathers number [phone]. Wants to be called when pt is discharged to pick him up.
--- NOTE | 2022-12-30 23:56 | ED.GENADULT ---
HPI - General Adult General Chief complaint: Chest Pain Stated complaint: chest pain Time Seen by Provider: 12/30/22 20:44 History of Present Illness HPI narrative: This is a 32-year-old IV drug user presenting ED with chief complaint of chest pain. The patient said that he has been having intermittent chest pain for the last several months. It is sharp pain center chest that radiates to his left arm and abdomen. It is 5/10 in intensity, and lasts 5-15 minutes at a time. Occurs about 10 times a day. He has never experienced for the last month. The pain is worse when he lays down improved when he standing. The patient denies fever, chills, night sweats, nausea vomiting diarrhea, difficulty breathing or neurologic symptoms. Related Data Home Medications Medication Instructions Recorded Confirmed methadone 10 mg tablet 100 mg PO DAILY 04/24/21 04/24/21 Allergies Allergy/AdvReac Type Severity Reaction Status Date / Time No Known Allergies Allergy Verified 04/24/21 11:20 [facility] Past Medical History Medical History Asthma Cholecystitis with perforation of gallbladder (~11/2019) Constipation due to opioid therapy History of bacteremia (~09/2016) Attributed to IV drug use. Nicotine dependence Opiate addiction Patient admits to injecting fentanyl intravenously q.4 hours. Surgical History Surgical History History of laparoscopic cholecystectomy (~11/15/19) With drainage of hepatic abscess. Family History Family History Father Gallbladder disease Sibling Gallbladder disease Social History Social History Social History: Surrogate decision maker: Estevan Ocasio, father. Code status: Full code. Smoking packs per day: 1 Smoking cigarettes per day: 20.0 Years smoked: 15 Smoking pack-years: 15.00 Smoking status: Current every day smoker Tobacco type: cigarettes Second hand tobacco smoke exposure: Yes Alcohol intake: never Substance use: current Substance use type: amphetamines, opiates and other Other substance usage details: IV drug use off and on for 5+ years. Previously on Suboxone. Last use: Last used amphetamines 1 month ago. Living arrangements: with family Additional living arrangements comments: Lives with his father in [place]. Occupation/Education: occupation Additional occupation/education comments: [employer] though not currently employed. Gender identity (if verbalized by the patient): Male Sexual Orientation (if Verbalized by the Patient): Straight or Heterosexual Spiritual care concerns: No Agree to blood products: Yes Exam Narrative: APPEARANCE: No apparent distress. Head: atraumatic. EYES: EOMI, NOSE: Atraumatic NECK: Trachea midline RESPIRATORY: No increased rate of breathing, slight expiratory wheezing CARDIOVASCULAR: RRR, no Osler's nodes/ [place] lesions, splinter hemorrhages, ABDOMINAL: abdomen is soft, nontender, no guarding or rebound MUSCULOSKELETAl: No obvious deformities NEURO: Alert. Moving 4/4 extremities SKIN:: Warm, dry. Normal color PSYCHIATRIC: Normal affect Course Vital Signs Vital signs: Vital Signs Temperature 98 F 12/30/22 18:46 Pulse Rate 84 12/30/22 18:46 Respiratory Rate 16 12/30/22 18:46 Blood Pressure 144/65 H 12/30/22 18:46 Pulse Oximetry 96 12/30/22 18:46 Oxygen Delivery Room Air 12/30/22 18:46 Temperature 98 F 12/30/22 18:46 Pulse Rate 60 12/31/22 00:35 Respiratory Rate 13 12/31/22 00:35 Blood Pressure 119/68 12/31/22 00:35 Pulse Oximetry 97 12/31/22 00:35 Oxygen Delivery Room Air 12/30/22 18:46 Medical Decision Making MDM Narrative Medical decision making narrative: -Presentation: this is a 32-year-old IV drug user presenting
[2022-12-31 00:15] LABS: Erythrocyte Sedimentation Rate 20 mm/hr (0-20)
[2022-12-31 00:35] VITALS: BP 119/68; PULSE 60; RESP 13; O2SAT 97
[2022-12-31 01:16] LABS: Troponin I < 0.012 ng/mL (0.000-0.034)
[2022-12-31] MEDS: IBUPROFEN 400 MG TABLET 800 MG PO (01:54)
[2022-12-31] MEDS: ACETAMINOPHEN 500 MG TABLET 1000 MG PO (01:54)
[2022-12-31] MEDS: methocarbamoL 750 MG TABLET 1500 MG PO (01:55)
[2022-12-31 02:43] VITALS: BP 117/77; PULSE 56; RESP 14; O2SAT 99
== END 2022-12-31 02:50 | disposition home or self-care (01) ==
PROVIDERS: Emergency Medicine; Emergency Provider Emergency Medicine; PCP Family Medicine
DX: R07.9 Chest pain, unspecified (principal); F11.20 Opioid dependence, uncomplicated; J45.909 Unspecified asthma, uncomplicated; F17.210 Nicotine dependence, cigarettes, uncomplicated; R94.31 Abnormal electrocardiogram [ECG] [EKG]
CPT/HCPCS: 36415; 71046; 71260; 74177; 80053; 83690; 84484; 85025; 85610; 85652; 85730; 86140; 87040; 93005; 99284; A9270; Q9967

== ENCOUNTER 2023-01-14 11:30 | Emergency (ER) | payer OTHER, SELFPAY ==
[2023-01-14] VITALS (12 sets, daily range): BP systolic 110–133; BP diastolic 62–66; PULSE 55–74; RESP 12–18; TEMP 36.4; O2SAT 95–100
--- NOTE | 2023-01-14 12:11 | ED.GENADULT ---
HPI - General Adult General Chief complaint: Unspecified Stated complaint: ecoli in blood cultures Time Seen by Provider: 01/14/23 12:02 History of Present Illness HPI narrative: Patient is a 32-year-old male presenting with positive blood cultures. Patient states that he was here several weeks ago with chest pain. He was able to go home and states that he has been doing overall well since that time. States that he received a call yesterday stating that there was E. coli in his blood. States that he has had several bloody stools over the last several weeks. States that he will randomly have sharp abdominal pains all over. He denies fevers or chills, chest pain, shortness of breath, cough, nausea or vomiting, dysuria, hematuria, rashes. Patient states that he does use fentanyl but he has not shot up for several weeks. Related Data Home Medications Medication Instructions Recorded Confirmed methadone 10 mg tablet 100 mg PO DAILY 04/24/21 04/24/21 Allergies Allergy/AdvReac Type Severity Reaction Status Date / Time No Known Allergies Allergy Verified 04/24/21 11:20 Review of Systems Review of Systems: All systems reviewed & are unremarkable except as noted in HPI and below PMFSH Past Medical History Medical History Asthma Cholecystitis with perforation of gallbladder (~11/2019) Constipation due to opioid therapy History of bacteremia (~09/2016) Attributed to IV drug use. Nicotine dependence Opiate addiction Patient admits to injecting fentanyl intravenously q.4 hours. Surgical History Surgical History History of laparoscopic cholecystectomy (~11/15/19) With drainage of hepatic abscess. Family History Family History Father Gallbladder disease Sibling Gallbladder disease Social History Social History Social History: Surrogate decision maker: Estevan Ocasio, father. Code status: Full code. Smoking packs per day: 1 Smoking cigarettes per day: 20.0 Years smoked: 15 Smoking pack-years: 15.00 Smoking status: Current every day smoker Tobacco type: cigarettes Second hand tobacco smoke exposure: Yes Alcohol intake: never Substance use: current Substance use type: amphetamines, opiates and other Other substance usage details: IV drug use off and on for 5+ years. Previously on Suboxone. Last use: Last used amphetamines 1 month ago. Living arrangements: with family Additional living arrangements comments: Lives with his father in [place]. Occupation/Education: occupation Additional occupation/education comments: [employer] though not currently employed. Gender identity (if verbalized by the patient): Male Sexual Orientation (if Verbalized by the Patient): Straight or Heterosexual Spiritual care concerns: No Agree to blood products: Yes Exam Narrative: GENERAL: Well-appearing, well-nourished, and in no acute distress. HEAD: Normocephalic, atraumatic. EYES: PERRLA and EOMI. ENT: Nares clear, no rhinorrhea or epistaxis. Mucous membranes moist. NECK: Supple. CHEST: Clear to auscultation. No respiratory distress. HEART: Regular rate and rhythm. No murmur heard. Normal peripheral pulses. ABDOMEN: Soft, nontender, nondistended EXTREMITIES: Normal range of motion. No edema. SKIN: Warm, dry, no rash. No lesions noted NEURO: No focal deficits. Alert and oriented x3. PSYCH: Normal mood and affect. Course Vital Signs Vital signs: Vital Signs Temperature 97.6 F 01/14/23 11:33 Pulse Rate 55 L 01/14/23 11:33 Respiratory Rate 18 01/14/23 11:33 Blood Pressure 118/65 01/14/23 11:33 Pulse Oximetry 97 01/14/23 11:33 Oxygen Delivery Room Air 01/14/23 11:33 Temperature 97.6 F 01/14/23 11:33 Pulse Rate 70
[2023-01-14 13:05] LABS: Basophils Percent Auto 0.5 % (0.2-1.2); Eosinophils Absolute Auto 0.2 K/mm3 (0-0.3); Eosinophils Percent Auto 2.1 % (0-4.4); Hematocrit 39.1 % (42.0-52.0); Hemoglobin 13.1 g/dL (14.0-18.0); Immature Granulocyte Absolute 0.02 K/mm3 (0.00-0.031); Immature Granulocyte Percent A 0.2 % (0-0.5); Lymphocytes Absolute Auto 2.17 K/mm3 (0.9-3.2); Lymphocytes Percent Auto 24.9 % (18.3-44.2); Mean Corpuscular HGB Conc 33.5 g/dl (32-36); Mean Corpuscular Hemoglobin 29.5 pg (26-34); Mean Corpuscular Volume 88.1 fl (80-100); Monocytes Absolute Auto 0.8 K/mm3 (0.1-0.6); Monocytes Percent Auto 8.6 % (2.6-8.5); Neutrophils Absolute Auto 5.6 K/mm3 (1.3-6.7); Neutrophils Percent Auto 63.7 % (45.5-73.1); Platelet Count Result 237 k/mm3 (150-375); Red Blood Count 4.44 M/mm3 (4.6-6.20); Red Cell Distribution Width 13.4 % (11.5-14.5); White Blood Count 8.7 K/mm3 (4.5-10.0)
[2023-01-14 13:24] LABS: Alanine Aminotransferase 27 U/L (6-50); Albumin Level 3.8 g/dL (3.5-5.1); Alkaline Phosphatase 91 U/L (38-126); Anion Gap 4 mmol/L (8-16); Aspartate Amino Transferase 35 U/L (17-59); Bilirubin,Total 0.5 mg/dL (0.2-1.3); Blood Urea Nitrogen 16 mg/dL (9-20); CRP 1.1 mg/dL (<1.0); Calcium 9.5 mg/dL (8.4-10.2); Carbon Dioxide 30 mmol/L (22-30); Chloride 105 mmol/L (98-107); Estimated CRCL calculation 114 ml/min; Estimated Glomerular Filt Rate > 60; Glucose 112 mg/dL (65-110); Potassium 3.9 mmol/L (3.4-5.0); Sodium 139 mmol/L (137-145)
[2023-01-14 13:28] LABS: Lactic Acid Reflex 0.8 mmol/L (0.7-2.0)
[2023-01-14 13:31] LABS: Erythrocyte Sedimentation Rate 15 mm/hr (0-20)
--- NOTE | 2023-01-14 14:08 | PC.NURSE ---
Addendum entered by Juan R Edward RN 01/14/23 14:08: Patient requesting to sign out AMA. Original Note: ERP requesting to sign out AMA. Pt. states he has to go get his daughter and no longer wants to wait. ERP notified and aware. Pt. to sign out AMA.
== END 2023-01-14 14:10 | disposition left against medical advice (07) ==
PROVIDERS: Emergency Provider Emergency Medicine; PCP Family Medicine
DX: R78.81 Bacteremia (principal); J45.909 Unspecified asthma, uncomplicated; F17.210 Nicotine dependence, cigarettes, uncomplicated
CPT/HCPCS: 36415; 80053; 83605; 85025; 85652; 86140; 87040; 99283

== ENCOUNTER 2025-08-29 01:28 | Emergency (ER) | payer OTHER, SELFPAY ==
[2025-08-29 01:35] VITALS: BP 131/98; PULSE 60; RESP 28; TEMP 36.2; O2SAT 100
[2025-08-29 02:00] VITALS: RESP 28
[2025-08-29 05:15] LABS: Hematocrit 36.4 % (42.0-52.0); Hemoglobin 12.0 g/dL (14.0-18.0); Immature Granulocyte Percent A 0.2 % (0-0.5); Lymphocytes Absolute Auto 2.86 K/mm3 (0.9-3.2); Mean Corpuscular HGB Conc 33.0 g/dl (32-36); Mean Corpuscular Hemoglobin 28.8 pg (26-34); Mean Corpuscular Volume 87.3 fl (80-100); Nucleated Red Blood Cells Absolute Auto 0.000 K/mm3 (0.0-0.012); Nucleated Red Blood Cells Perc 0.0 % (0.0-0.2); Platelet Count Result 253 k/mm3 (150-375); Red Blood Count 4.17 M/mm3 (4.6-6.20); White Blood Count 8.4 K/mm3 (4.5-10.0)
[2025-08-29 05:16] LABS: Add Urine Microscopic? NO; Appearance Urine Clear (Clear); Glucose Urine UA Negative (Negative); Leukocyte Esterase Ur Negative LEU/UL (Negative); Nitrate Urine Negative (Negative); Specific Grav Ur 1.016 (1.001-1.035)
[2025-08-29 05:17] LABS: Cannabinoid Screen Urine Positive (Negative)
[2025-08-29 05:21] LABS: Alanine Aminotransferase 19 U/L (6-50); Albumin Level 4.0 g/dL (3.5-5.1); Alkaline Phosphatase 76 U/L (38-126); Anion Gap 6 mmol/L (4-12); Aspartate Amino Transferase 25 U/L (17-59); Bilirubin,Total 0.4 mg/dL (0.2-1.3); Blood Urea Nitrogen 17 mg/dL (9-20); Calcium 10.0 mg/dL (8.4-10.2); Carbon Dioxide 27 mmol/L (22-30); Chloride 104 mmol/L (98-107); Estimated Glomerular Filt Rate > 60; Glucose 130 mg/dL (65-110); Potassium 4.2 mmol/L (3.4-5.0); Sodium 137 mmol/L (137-145); Total Protein 7.8 g/dL (6.3-8.2)
[2025-08-29 05:22] LABS: Acetaminophen < 10 ug/mL (10-30); Salicylate < 1.0 mg/dL (2-20)
--- NOTE | 2025-08-29 06:07 | ED.OVERDOSE ---
HPI - Overdose General Chief Complaint: Overdose Stated Complaint: Overdose History of Present Illness HPI Narrative: Patient seen, examined, evaluated and treated during EMR down time in the ED. Please see paper charting and documentation in physical forms within the chart for complete dictation of patient's care. Related Data Home Medications ?Medication ?Instructions ?Recorded ?Confirmed ?Last Taken ?Type methadone 10 mg tablet 100 mg PO DAILY 04/24/21 04/24/21 Unknown History Allergies Allergy/AdvReac Type Severity Reaction Status Date / Time No Known Allergies Allergy Verified 04/24/21 11:20 Review of Systems Review of Systems: All systems reviewed & are unremarkable except as noted in HPI and below PMFSH Past Medical History Medical History Nicotine dependence Opiate addiction Patient admits to injecting fentanyl intravenously q.4 hours. Constipation due to opioid therapy History of bacteremia (~09/2016) Attributed to IV drug use. Asthma Cholecystitis with perforation of gallbladder (~11/2019) Surgical History Surgical History History of laparoscopic cholecystectomy (~11/15/19) With drainage of hepatic abscess. Family History Family History Father Gallbladder disease Sibling Gallbladder disease Social History Social History Social History: Surrogate decision maker: Estevan Ocasio, father. Code status: Full code. Smoking packs per day: 1 Smoking cigarettes per day: 20.0 Years smoked: 15 Smoking pack-years: 15.00 Smoking status: Current every day smoker Tobacco type: cigarettes Second hand tobacco smoke exposure: Yes Alcohol intake: never Substance use: current Substance use type: amphetamines, opiates and other Other substance usage details: IV drug use off and on for 5+ years. Previously on Suboxone. Last use: Last used amphetamines 1 month ago. Living arrangements: with family Additional living arrangements comments: Lives with his father in [place]. Occupation/Education: occupation Additional occupation/education comments: [employer] though not currently employed. Gender identity (if verbalized by the patient): Male Sexual Orientation (if Verbalized by the Patient): Straight or Heterosexual Spiritual care concerns: No Agree to blood products: Yes Exam Narrative: Patient seen, examined, evaluated and treated during EMR down time in the ED. Please see paper charting and documentation in physical forms within the chart for complete dictation of patient's care. [facility] Narrative Medical decision making narrative: Patient seen, examined, evaluated and treated during EMR down time in the ED. Please see paper charting and documentation in physical forms within the chart for complete dictation of patient's care. Differential Diagnosis Differential Diagnosis: Opiate overdose, drug overdose Lab Data [facility] Lab Attestation statement: I personally reviewed the patient's lab results. 08/29/25 02:00 08/29/25 02:02 Labs: Lab Results 08/29/25 08/29/25 08/29/25 Range/Units 02:00 02:02 03:52 WBC 8.4 (4.5-10.0) K/mm3 RBC 4.17 L (4.6-6.20) M/mm3 Hgb 12.0 L (14.0-18.0) g/dL Hct 36.4 L (42.0-52.0) % MCV 87.3 (80-100) fl MCH 28.8 (26-34) pg MCHC 33.0 (32-36) g/dl RDW 13.2 (11.5-14.5) % Plt Count 253 (150-375) k/mm3 MPV 9.9 (7.4-10.4) fl Immature Gran % (Auto) 0.2 (0-0.5) % Neut % (Auto) 52.9 (45.5-73.1) % Lymph % (Auto) 34.3 (18.3-44.2) % Divide % (Auto) 9.7 H (2.6-8.5) % Eos % (Auto) 2.3 (0-4.4) % Baso % (Auto) 0.6 (0.2-1.2) % Lymph # (Auto) 2.86 (0.9-3.2) K/mm3 Divide # (Auto) 0.8 H (0.1-0.6) K/mm3 Eos # (Auto) 0.2 (0-0.3) K/mm3 Baso # (Auto) 0.1 (0.0-0.1) K/mm3 Abs Immat Gran (auto) 0.02 (0.00-0.031) K/mm3 Absolute Neuts (auto) 4.4 (1.3-6.7) K/mm3 Absolute Nucleated RBC 0.000 (0.0-0.012) K/mm3 Nucleated RBC % 0.0 (0.0-0.2) % Sodium 137 (137-145) mmol/L Potassium 4.2 (3.4-5.0) mmol/L Chloride 104 (98-107) mmol/L Carbon Dioxide 27 (22-30) mmol/L Anion Gap 6 (4-12) mmol/L BUN 17 (9-20) mg/dL Creatinine 0.70 (0.7-1.3) mg/dL Estim Creat Clear Calc Not Reportable Estimated GFR > 60 (59 - ) Glucose 130 H (65-110) mg/dL Calcium 10.0 (8.4-10.2) mg/dL Total Bilirubin 0.4 (0.2-1.3) mg/dL AST 25 (17-59) U/L ALT 19 (6-50) U/L Alkaline Phosphatase 76 (38-126) U/L Total Protein 7.8 (6.3-8.2) g/dL Albumin 4.0 (3.5-5.1) g/dL Urine Color Pending Urine Appearance Pending Urine pH Pending Ur Specific [place] Pending Urine Protein Pending Urine Glucose (UA) Pending Urine Ketones Pending Ur Blood (Man) Pending Urine Nitrate Pending Urine Bilirubin Pending Urine Urobilinogen Pending Leukocyte Esterase Rfl Pending Salicylates < 1.0 L (2-20) mg/dL Urine Opiates Screen Positive A (Negative) Urine Methadone Screen Negative (Negative) Acetaminophen < 10 L (10-30) ug/mL Ur Barbiturates Screen Negative (Negative) Ur Phencyclidine Scrn Negative (Negative) Ur Amphetamine Screen Negative (Negative) U Benzodiazepines Scrn Positive A (Negative) Urine Cocaine Screen Positive A (Negative) U Cannabinoids Screen Positive A (Negative) Ethyl Alcohol < 10 (<10) mg/dL Discharge Plan Discharge Clinical Impression: Opiate overdose Patient Disposition: Home Condition: Stable Instructions: Antibiotic Form, Adult Overdose (ED) Additional Instructions: Avoid opiates or other substances as you had a opiate overdose today. We have sent you a prescription for naloxone. Patient Language: Sammarinese Prescriptions: New naloxone [Rextovy] 4 mg/actuation spray,non-aerosol 4 mg intranasal Q2M PRN (Reason: opioid overdose) Qty: 2 0RF Rx Instructions: spray 1 dose into ONE nostril; alternate nostrils w each dose until help arrives No Action methadone 10 mg Tablet 100 mg PO DAILY cyclobenzaprine 10 mg tablet 10 mg PO TID PRN (Reason: muscle spasm) Qty: 30 0RF acetaminophen 500 mg tablet 1,000 mg PO TID PRN (Reason: matt) 7 Days Qty: 42 0RF ibuprofen 800 mg tablet 800 mg PO TID PRN (Reason: pain) 7 Days Qty: 21 0RF methocarbamol 750 mg tablet 1,500 mg PO TID Qty: 35 0RF Follow-up/Referrals: Rodrigo,Foreign Aguillon MD [Primary Care Provider] Time of Disposition: 06:07
[2025-08-29 06:45] VITALS: BP 148/98; PULSE 56; RESP 16; O2SAT 99
== END 2025-08-29 05:45 | disposition home or self-care (01) ==
PROVIDERS: Emergency Provider Student in an Organized Health Care Education/Training Program; PCP Family Medicine
DX: T40.2X1A Poisoning by other opioids, accidental (unintentional), initial encounter (principal)
CPT/HCPCS: 36415; 80053; 80143; 80179; 80307; 81003; 82077; 85025; 99283